=== PATIENT | male | born 2005 | race Caucasian/White ===

== ENCOUNTER 2023-10-09 13:25 | Emergency (ER) | payer OTHER, SELFPAY ==
[2023-10-09 13:30] VITALS: BP 155/94; PULSE 100; RESP 18; TEMP 36.8; O2SAT 100; BMI 16.7
--- NOTE | 2023-10-09 13:36 | ED.UPPEXIN1 ---
HPI - Extremity Injury (Upper) General Chief Complaint: Wound/Laceration Stated Complaint: UPPER EXTREMITY INJURY TO RIGHT THUMB Time Seen by Provider: 10/09/23 13:35 Source: patient Mode of arrival: walk-in Limitations: no limitations History of Present Illness HPI narrative: patient is a 18-year-old male who presents to the emergency department for laceration to the left hand that occurred at home just prior to arrival. He states he was using a very sharp hook blade to cut a water bottle when he sustained a laceration to the palm of the left hand at the 1st metacarpal. There is mild venous oozing, no arterial bleeding at this time. Tetanus is up-to-date. He had no other associated injuries. He is right-hand dominant. This was not a work-related injury. Related Data Allergies Allergy/AdvReac Type Severity Reaction Status Date / Time Iodinated Contrast Media Allergy Unknown Verified 10/09/23 13:33 morphine Allergy Unknown Verified 10/09/23 13:33 Review of Systems ROS Constitutional Denies: fever or chills Ears, nose, mouth, and throat Denies: throat pain Respiratory Denies: shortness of breath Gastrointestinal Denies: nausea or vomiting Musculoskeletal Reports: extremity pain; Denies: neck pain Integumentary/Breast Denies: rash Hematologic/Lymphatic Denies: easy bruising Exam Narrative Exam Narrative: Gen.: Awake, alert, in no distress Head: Normocephalic, atraumatic ENT: Moist mucous membranes Respiratory: No respiratory distress Extremities: left hand with a 3 cm laceration extending proximally to distally over the palm of the left hand, 1st metacarpal. No laceration over the MCP joint of the left thumb. Normal flexion and extension at the MCP and IP joint of the left thumb, no evidence of tendon deficit. Minimal bleeding at this time, subcutaneous tissue visualization with no deep laceration or bony/tendon visualization Psych: Normal mood and affect Neuro: No focal neuro deficit Skin: Warm, dry Constitutional Vital Signs, click to edit/add: Last Vital Signs Temp 98.2 F 10/09/23 13:30 Pulse 100 H 10/09/23 13:30 Resp 18 10/09/23 13:30 BP 155/94 H 10/09/23 13:30 Pulse Ox 100 10/09/23 13:30 O2 Del Method Room Air 10/09/23 13:30 Course Vital Signs Vital signs: Vital Signs Temperature 98.2 F 10/09/23 13:30 Pulse Rate 100 H 10/09/23 13:30 Respiratory Rate 18 10/09/23 13:30 Blood Pressure 155/94 H 10/09/23 13:30 Pulse Oximetry 100 10/09/23 13:30 Oxygen Delivery Method Room Air 10/09/23 13:30 Temperature 98.2 F 10/09/23 13:30 Pulse Rate 100 H 10/09/23 13:30 Respiratory Rate 18 10/09/23 13:30 Blood Pressure 155/94 H 10/09/23 13:30 Pulse Oximetry 100 10/09/23 13:30 Oxygen Delivery Method Room Air 10/09/23 13:30 MDM - Extremity Injury (Upper) MDM Narrative Medical decision making narrative: Laceration repair: Done under sterile conditions. The use of Shur-Clens prep the area. Local injection with lidocaine 1% was used, approximately 5 cc. The wound was irrigated copiously with normal saline. The wound was explored there was no evidence of foreign material. The laceration was approximated with 3-0 nylon. 5 simple interrupted sutures were placed. Patient tolerated the procedure well. The patient was neurovascularly intact post. the patient had bacitracin applied to the laceration and a dry sterile dressing was place. The patient will need to follow-up in the next 7-10 days for removal Laceration was repaired without difficulty, please see procedure note for details. Sutures removed in 7-10 days with PCP, return to the Emergency Room if symptoms change or worsen. Medical Records Attestation: I reviewed the patient's medical records. Discharge Plan Discharge Chief Complaint: Wound/Laceration Clinical Impression: Laceration of left hand Patient Disposition: Home, Self-Care Time of Disposition Decision: 13:39 Condition: Good Instructions: Laceration (ED) Additional Instructions: Sutures removed in 7-10 days with your doctor or at urgent care Stand Alone Forms: Portal Instructions Referrals: KEISHA YI [Primary Care Provider] - 1 week
[2023-10-09] MEDS: BACITRACIN 0.9 GM PACKET 1 PACKET TOPICAL (13:42)
[2023-10-09] MEDS: LIDOCAINE HCL 1% 100 MG/10 ML MDV INJ (13:43)
== END 2023-10-09 14:07 | disposition home or self-care (01) ==
PROVIDERS: Emergency Provider Emergency Medicine; PCP Pediatrics
DX: S61.412A Laceration without foreign body of left hand, initial encounter (principal); W26.8XXA Contact with other sharp object(s), not elsewhere classified, initial encounter
CPT/HCPCS: 12002; 99284

== ENCOUNTER 2024-02-11 08:55 | Emergency (ER) | payer OTHER, SELFPAY ==
[2024-02-11 09:00] VITALS: BP 123/95; PULSE 100; RESP 18; TEMP 36.9; O2SAT 100; BMI 15.6
--- NOTE | 2024-02-11 09:08 | ED.URI1 ---
HPI - URI/Sore Throat General Chief Complaint: Upper Respiratory Infection Stated Complaint: COUGH Time Seen by Provider: 02/11/24 09:00 Source: patient Limitations: no limitations History of Present Illness HPI Narrative: 18-year-old male presents for cough that has had for a week and he has been coughing up yellow phlegm. No known fever or hemoptysis. No vomiting or diarrhea. Related Data Previous Rx's Medication Instructions Recorded azithromycin 250 mg tablet See Rx Instructions PO .COMPLEX #6 02/11/24 (Zithromax Z-Silviano) tabs benzonatate 100 mg capsule 100 mg PO TID PRN cough #20 caps 02/11/24 Allergies Allergy/AdvReac Type Severity Reaction Status Date / Time Iodinated Contrast Media Allergy Unknown Verified 02/11/24 09:00 morphine Allergy Unknown Verified 02/11/24 09:00 Review of Systems ROS Narrative A ten point review of systems is negative except as noted above. PFSH PFSH Social History Smoking status: Current every day smoker Exam Narrative Exam Narrative: Nurses note and vital signs reviewed and patient is not hypoxic. General: The patient appears in no apparent distress and coughs frequently. Skin: Warm, dry, no pallor noted. There is no rash noted. Head: Normocephalic, atraumatic Eye: Normal conjunctiva, no drainage Ears, Nose, Mouth, and Throat: oral mucosa is moist. Nares patent. Cardiovascular: Regular Rate and Rhythm Respiratory: Patient is in no distress, no accessory muscle use, lungs are clear to auscultation, no wheezing, rales or rhonchi Back: non-tender GI: Soft and nontender Musculoskeletal: The patient has no evidence of calf tenderness, no pitting edema, symmetrical pulses noted bilaterally Neurological: A&O, normal speech Psychiatric: Cooperative Constitutional Vital Signs, click to edit/add: Last Vital Signs Temp 98.5 F 02/11/24 09:00 Pulse 100 H 02/11/24 09:00 Resp 18 02/11/24 09:00 BP 123/95 H 02/11/24 09:00 Pulse Ox 100 02/11/24 09:00 O2 Del Method Room Air 02/11/24 09:00 Course Vital Signs Vital signs: Vital Signs Temperature 98.5 F 02/11/24 09:00 Pulse Rate 100 H 02/11/24 09:00 Respiratory Rate 18 02/11/24 09:00 Blood Pressure 123/95 H 02/11/24 09:00 Pulse Oximetry 100 02/11/24 09:00 Oxygen Delivery Method Room Air 02/11/24 09:00 Temperature 98.5 F 02/11/24 09:00 Pulse Rate 100 H 02/11/24 09:00 Respiratory Rate 18 02/11/24 09:00 Blood Pressure 123/95 H 02/11/24 09:00 Pulse Oximetry 100 02/11/24 09:00 Oxygen Delivery Method Room Air 02/11/24 09:00 MDM - URI/Sore Throat MDM Narrative Medical decision making narrative: COVID and flu swabs are negative and the chest x-ray is negative as well. Treatment diagnosis and follow-up were discussed with the patient Differential Diagnosis Differential diagnosis: Likely upper respiratory infection, viral infection, influenza and other (Pneumonia, COVID) Lab Data Attestation: I reviewed the patient's lab results. Labs: Lab Results 02/11/24 Range/Units 09:05 Influenza Type A Ag Negative Influenza Type B Ag Negative SARS-CoV-2 Ag (CV2AG) Negative (NEGATIVE) Imaging Data Chest x-ray: Radiologist's impression: ITS Impressions Chest X-Ray 02/11/24 09:20 IMPRESSION: No acute cardiopulmonary process Electronically authenticated by: JOCY GUDINO Date: 02/11/2024 09:29 Discharge Plan Discharge Stand Alone Forms: Portal Instructions Chief Complaint: Upper Respiratory Infection Clinical Impression: Upper respiratory infection Patient Disposition: Home, Self-Care Time of Disposition Decision: 10:12 Condition: Good Mode of Transportation: Private Vehicle Prescriptions / Home Meds: New azithromycin [Zithromax Z-Silviano] 250 mg tablet See Rx Instructions .ROUTE .COMPLEX Qty: 6 0RF Rx Instructions: For 250 mg dose pack: take 500 mg today (day 1), then 250 mg for 4 days (days 2-5) benzonatate 100 mg capsule 100 mg PO TID PRN (Reason: cough) Qty: 20 0RF Instructions: Upper Respiratory Infection (ED) Referrals: KEISHA YI [Primary Care Provider] - 1 week
--- OUTSIDE RECORDS SUMMARY | 2024-02-11 09:13 | XMS_ITS | CCD ---
Author Name Unknown Address [address] [place] [address] Organization [facility] Care Team Providers Care Stockroom Clerk Name Role Phone PROVIDER, UNKNOWN Admitting Unavailable PROVIDER, UNKNOWN Attending Unavailable RICARDO, BONI Referring Unavailable PROVIDER, UNKNOWN Admitting Unavailable PROVIDER, UNKNOWN Attending Unavailable PATIENT, SELF Referring Unavailable PROVIDER, UNKNOWN Admitting Unavailable PROVIDER, UNKNOWN Attending Unavailable PATIENT, SELF Referring Unavailable WNEK, Vipul Villatoro Primary Care Physician [phone] PAY, DR VILLA Attending Unavailable PAY, DR VILLA Consulting Unavailable WNEK, DR VIPUL Villatoro Primary Care Unavailable PAY, DR VILLA Admitting Unavailable MARKER, DR BEE Consulting Unavailable MARKER, DR BEE Admitting Unavailable WNEK, DR VIPUL Villatoro Primary Care Unavailable MARKER, DR BEE Attending Unavailable SAID, BINOR Consulting Unavailable Marti, Giliudmila Consulting Unavailable NONE, XXXX Primary Care Physician Unavailab le SALAM, Sunday Attending Unavailable SALAM, Sunday Referring Unavailable SALAM, Brand Admitting Unavailable SALAM, Brand Referring Unavailable SALAM, Brand Admitting Unavailable SALAM, Sunday Attending Unavailable SALAM, Brand Referring Unavailable SALAM, Brand Admitting Unavailable SALAM, Brand Attending Unavailable Sully, Estella A Admitting Unavailable Sully, Estella A Attending Unavailable Daniela Stevens A Attending Unavailable SALAM, Sunday Attending Unavailable Sully, Estella A Attending Unavailable Nicole Mckoy Attending Unavailable Mellissa CALLE Attending Unavailable Allergies Allergy Classification Reported Allergen(s) Allergy Type Date of Onset Reaction(s) Facility (8 sources) Cephalexin; Translations: [CEPHALEXIN] Drug Allergy 01-18-20 Eruption of skin (disorder) [facility] (8 sources) Morphine; Translations: [MORPHINE] Drug Allergy 01-18-20 Eruption of skin (disorder) [facility] (1 source) IVP CONTRAST DYE; Translations: [IVP CONTRAST DYE] Propensity to adverse reactions (disorder) 01-19-20 [facility] (11 sources) Promethazine; Translations: [promethazine] Drug Allergy HIVES, Unknown [facility] (1 source) Iodine (And Iodine Containting Drugs) Drug allergy (disorder) [facility] Repository (7 sources) iodinated radiocontrast dyes; Translations: [iodinated radiocontrast agents] Drug allergy 01-18-20 Eruption of skin (disorder) [facility] (1 source) No Known Medication Allergies; Translations: [No Known Medication Allergies] Propensity to adverse reactions (disorder) [facility] Repository Medications Current Medications Medication Drug Class(es) Dates Sig (Normalized) Sig (Original) cephalexin 500 mg oral capsule (1 source) Cephalosporin Antibacterial Start: 04-22-2022 End: 04-29-2022 take 1 capsule by mouth every twelve hours Keflex 500 mg Cap 500 mg = 1 cap(s), Oral, q12hr, X 7 day(s), # 14 cap(s), Refills(s) 0, Pharmacy: [facility]/pharmacy #[id number], 185.2, cm, 01/15/22 13:32:00 EST, Height/Length Dosing, 52.7, kg, 01/15/22 13:32:00 EST, Weight Dosing Start Date: 04/22/22 Stop Date: 04/29/22 Status: Ordered cloNIDine hydrochloride 0.1 mg oral tablet (1 source) Central alpha-2 Adrenergic Agonist Start: 03-13-2022 take 1 tablet by mouth at bedtime cloNIDine 0.1 mg tab 0.1 mg = 1 tab(s), Oral, Bedtime, # 30 tab(s), Refills(s) 0, Pharmacy: [facility]/pharmacy #[id number], 185.2, cm, 01/15/22 13:32:00 EST, Height/Length Dosing, 52.7, kg, 01/15/22 13:32:00 EST, Weight Dosing Start Date: 03/13/22 Status: Ordered Ibuprofen (2 sources) Nonsteroidal Anti-inflammatory Drug Start: 05-21-2023 ibuprofen Refills(s) 0 Start Date: 05/21/23 Status: Ordered Mupirocin (6 sources) RNA Synthetase Inhibitor Antibacterial Start: 05-27-2022 mupirocin topical 2% ointment 1 kenny, Topical, TID, 30 gram, Refill(s) 0, [facility]/pharmacy #[id number], 177.2, cm, 05/27/22 9:52:00 EDT, Height/Length Dosing, 51.8, kg, 05/27/22 9:52:00 EDT, Weight Dosing Start Date: 05/27/22 Status: Ordered omeprazole 20 mg delayed release oral capsule (3 sources) Proton Pump Inhibitor Start: 04-05-2023 End: 04-19-2023 take 1 capsule by mouth once daily omeprazole 20 mg Cap-DR 20 mg = 1 cap(s), Oral, Daily, X 14 day(s), # 14 cap(s), Refills(s) 0, Pharmacy: [facility]/pharmacy #[id number], 180, cm, 04/05/23 22:17:00 EDT, Height/Length Dosing, 50.7, kg, 04/05/23 22:17:00 EDT, Weight Dosing Start Date: 04/05/23 Stop Date: 04/19/23 Status: Ordered predniSONE 50 mg oral tablet (3 sources) Start: 04-17-2023 take 1 tablet by mouth every twenty-four hours predniSONE 50 mg Tab See Instructions, 1 tab PO [address] 1 tab PO [address] 1 tab PO [address] along with Benadry 50mg tab [address], # 3 tab(s), Refills(s) 0, called to pharmacy (Rx) Start Date: 04/17/23 Status: Ordered Problems Active Problems Problem Classification Problem Date Documented Da te Episodic/Chronic Anxiety disorders (3 sources) Anxiety disorder; Translations: [Anxiety disorder, unspecified] Onset: 05-21-2023 Chronic Anxiety disorders (7 sources) Outbursts of anger 02-16-2020 Episodic E Codes: Natural/environment (1 source) Exposure to other specified factors, initial encounter; Translations: [EXPOSURE OTHER SPEC FACTORS INITIAL] Onset: 11-07-2022 Episodic Other bone disease and musculoskeletal deformities (7 sources) Costal chondritis 03-30-2020 Episodic Other circulatory disease (3 sources) Other specified symptoms and signs involving the circulatory and respiratory systems; Translations: [OTH SPEC SX SIGNS INVLV CIRC RS] Onset: 11-05-2022 Episodic Other gastrointestinal disorders (9 sources) Dysphagia; Translations: [Dysphagia, unspecified] Onset: 04-10-2023 Episodic Other gastrointestinal disorders (1 source) Constipation, unspecified; Translations: [Constipation, unspecified] Onset: 05-21-2023 Episodic Other gastrointestinal disorders (2 sources) Constipation 05-21-2023 Episodic Other injuries and conditions due to external causes (1 source) Food in esophagus causing other injury, initial encounter; Translations: [FOOD ESOPH CAUS OTH INJURY INIT ENC] Onset: 11-07-2022 Episodic Other non-traumatic joint disorders (6 sources) Shoulder pain 05-27-2022 Episodic Other nutritional; endocrine; and metabolic disorders (2 sources) Abnormal weight loss; Translations: [Abnormal weight loss] Onset: 04-10-2023 Episodic Other nutritional; endocrine; and metabolic disorders (6 sources) Weight loss 04-10-2023 Episodic Other nutritional; endocrine; and metabolic disorders (1 source) Body mass index less than 20; Translations: [Body mass index (BMI) 19.9 or less, adult] Onset: 05-21-2023 Episodic Other upper respiratory infections (20 sources) Acute pharyngitis; Translations: [Acute upper respiratory infection] 09-04-2020 Episodic Residual codes; unclassified (7 sources) Insomnia 11-27-2021 Episodic Residual codes; unclassified (1 source) Tobacco user; Translations: [Tobacco use] Onset: 05-21-2023 Episodic Substance-related disorders (8 sources) Smoker; Translations: [Nicotine dependence, cigarettes, uncomplicated] Onset: 11-07-2022 04-22-2022 Chronic Comment on above: Added secondary to d ocumentation in Social History. Unclassified (7 sources) Decreased body mass index 05-03-2019 Unclassified (7 sources) Exposure to 2019 novel coronavirus 09-12-2021 Unclassified (7 sources) Patient encounter status 05-18-2020 Unclassified (6 sources) Puncture wound of finger of left hand 05-27-2022 Past or Other Problems Problem Classification Problem Date Documented Date Episodic/Chronic Genitourinary symptoms and ill-defined conditions (4 sources) Dysuria; Translations: [DYSURIA] Onset: 04-28-2022 Episodic Immunizations and screening for infectious disease (1 source) Contact with and (suspected) exposure to infections with a predominantly sexual mode of transmission; Translations: [CONTCT W EXPOS INFECT SEXUAL TRNSMS] Onset: 04-30-2022 Episodic Urinary tract infections (2 sources) Urinary tract infectious disease; Translations: [Urinary tract infection, site not specified] Onset: 04-22-2022 Episodic Results Test Name Value Interpretation Reference Range Facility Consent for Procedure/Surger yon 05-22-2023 Consent for Procedure/Surgery [id number]# 1.00CD:127 Normal [facility] Gastroenterology Office/Clin ic Noteon 05-22-2023 Gastroenterology Office/Clinic Note Chief Complaint dysphagia, stomach cramping after drinking an ensure on an empty stomach HPI Staff Patient is a 18 year old male who presents today to f/u from EGD, CT and labs to rule out Celiac disease/hemochromatos is (strong family hx.) C/o dysphagia and weight loss. Needs to schedule outpatient colonoscopy today. History of Present Illness Paco Edmonds is a 18-year-old white male who was initially seen by my nurse in 03/2023 after an ER visit. He had weight loss and dysphagia. He underwent an abdomen and pelvic CT scan in 05/2023 which was completely normal. For his dysphagia, I proceeded with an EGD which was done in 03/2023 and showed a mild proximal esophageal wipe which I dilated using 52 Mauritanian dilator and he had normal gastric and duodenal mucosa. His esophageal mucosa were negative for eosinophilic esophagitis, his stomach mucosa were negative for H. pylori and his duodenal mucosa were not consistent with celiac disease. He had a normal CBC and CMP. His sedimentation rate was normal. His TSH was normal. His iron panel was normal and celiac panel was normal. He states that his dysphagia resolved for a few days following the dilation but then returned. He reports he is chocking on food and feeling like he is swallowing a rock that takes longer to travel with dense food. He has been eating mashed food and drinking 2 Ensure daily. He has been maintaining a steady weight at 82 to 102 pounds. He denies losing any more weight. The patient denies heartburn, acid reflux, diarrhea, or hematochezia. He reports mild constipation. He has a bowel movement every 1 to 2 days. He denies any neurologic problems. He has a history of anxiety and stress. He does not feel that his anxiety is severe enough to require treatment. He sleeps 5 to 8 hours at night. He reports that his dysphagia improved when he took prednisone before his contrast. He has been taking liquid ibuprofen. He has a family history of esophageal spasms in his cousin. Review of Systems PHQ Score Initial Depression Screen Score: 0 Constitutional: No fever, no chills, no sweats, no weakness Skin: No Jaundice, no rash, no lesions, no petechiae ENMT: no ear pain, no sore throat, no congestion, no hoarseness Respiratory: no shortness of breath, no cough, no orthopnea, no wheezing Cardiovascular: no chest pain, no palpitations, no edema Gastrointestinal: no nausea, no vomiting, no diarrhea, no GI bleeding, no abdominal pain, no bloating, no heartburn. Positive for dysphagia, weight loss, constipation. Genitourinary: No dysuria, no hematuria, no discharge, no pain Musculoskeletal: no back pain, no trauma Neurologic: no numbness, no sleeping problems. Positive anxiety. Additional ROS info: Except as noted in the above Review of Systems and in the History of Present Illness all other systems have been reviewed and are negative or noncontributory. Physical Exam Vitals & Measurements HR: 77(Peripheral) RR: 16 BP: 134/85 SpO2: 98% HT: 71 in HT: 180 cm WT: 49.8 kg WT: 109.56 lb BMI: 15.37 Constitutional: Appearance: well developed. Skin: Inspection: no rashes, ulcers, icterus, or telangiectasias. Eyes: Conjunctivae/lids: normal conjunctivae and lids. ENMT: Hearing: within normal limits. Lips/Teeth/Gums: normal oral mucosa. Neck: Neck: normal motion, central trachea. Respiratory: Percussion: thorax normoresonant. Auscultation: normal breath sounds; no rubs, wheezes, rale, or rhonchi. Cardiovascular: Auscultation: normal rhythm, S1 and S2; no rubs, murmurs, or gallop. Peripheral: no edema. Gastrointestinal/Abdo men: Abdomen: normal consistency and bowel sounds; no tenderness or masses. Liver/Spleen: normal size and consistency, not palpable. Rectal: deferred. Musculoskeletal: Gait/Station: normal gait. Assessment/Plan 1. Dysphagia (R13.10: Dysphagia, unspecified) The patient has significant dysphagia. He had a recent EGD. A mild proximal esophageal web was noted and dilated using 52 Mauritanian dilator. The patient reported only temporary improvement for a few days. He continued to report dysphagia. He describes it in a term that is more consistent with esophageal etiology. At this point, I do recommend to proceed with esophageal motility, esophagram and after this done I will repeat the scope with dilation with a large dilator around 58 or 60 Mauritanian dilator. His recent esophageal biopsies were negative for eosinophilic esophagitis, although the patient reported a transient improvement with his dysphagia after he took a few pills of prednisone as a preparation for his potential allergic reaction with the CT scan dye. I would recommend to repeat the esophageal biopsy during the upcoming EGD. 2. Weight loss (R63.4: Abnormal weight loss) The patient had significant weight loss in the past, but his weight remained stable since the last visit. He had a normal CBC, CMP, TSH, sedimentation rate, celiac panel, abdominal and pelvic CT scan.He reports very mild constipation. Given his above symptoms, (more content not included)... Normal [facility] Comment on above: Result Comment: Elec tronically Signed By: Milton Maya\.br\Date and Time Signed: 05/21/23 11:32 EDT\.br\Electronically Co-Signed By: Sunday MEDRANO MD\.br\Date and Time Co-Signed: 05/22/23 08:24 EDT Ambulatory Visit Summaryon 0 05-21-2023 Ambulatory Visit Summary PACO EDMONDS :2005 Visit Date:05/21/2023 Ambulatory Visit Instructions Your Diagnosis Dysphagia Weight loss Constipation Anxiety BMI less than 19,adult Vapes nicotine containing substance Your Care Team Attending Physician - Sunday MEDRANO MD Primary Care Physician - NONE, XXXX This Is Your Medications List Contact prescribing physician if questions or concerns ibuprofen mupirocin topical (mupirocin topical 2% ointment) predniSONE (predniSONE 50 mg Tab) Procedures Performed Esophagogastroduodeno scopy (04/11/2023), Dental surgery service (01/19/2020), Laparoscopic appendectomy (11/27/2018). Discharge Vitals Heart Rate (Peripheral) 77 Respiratory Rate 16 Blood Pressure 134/85 Height 71 in Height 180 cm Weight 109.56 lb Weight 49.8 kg BMI 15.37 What to do next Scheduled Follow-Up Appointments Friday 9:00 AM EDT Where: [facility] Friday 10:00 AM EDT Where: [facility] You Need to Complete the Following XR Esophagus, 05/30/23, Routine, Order for future visit, Transport Mode: Bed, Reason: Dysphagia, Reason: R13.10, No, Dysphagia, pp_set_radiology_subs pecialty, Not Required, [facility] Medications What How Much When Why Instructions Unchanged ibuprofen Contact prescribing physician if questions or concerns Unchanged mupirocin topical (mupirocin topical 2% ointment) 1 Application Topical 3 times a day Puncture wound of finger of left hand Contact prescribing physician if questions or concerns Unchanged predniSONE (predniSONE 50 mg Tab) See instructions 1 tab PO [address] 1 tab PO [address] 1 tab PO [address] along with Benadry 50mg tab [address] Contact prescribing physician if questions or concerns Allergies Phenergan (HIVES) cephalexin (Eruption) iodinated radiocontrast dyes (Eruption) morphine (Eruption) promethazine (Unknown, HIVES) Problems Ongoing - Any problem that you are currently receiving treatment for. Acute costochondritis Acute pharyngitis Acute pharyngitis Anxiety Constipation Dysphagia Exposure to COVID-19 virus Insomnia Outbursts of anger Puncture wound of finger of left hand Right shoulder pain Smoker Underweight in childhood with BMI < 5th percentile Upper respiratory infection Weight loss Well child check Historical - Any problem that you are no longer receiving treatment for. Acute upper respiratory infection Normal [facility] CT Abdomen/Pelvis w/ Contras ton 05-12-2023 CT Abdomen/Pelvis w/ Contrast Exam Date/Time: 05/10/2023 10:11 EDT Reason for Exam: R13.10;Other (please specify) Report IMPRESSION: NO ACUTE OR SIGNIFICANT INTRA-ABDOMINAL PROCESS IDENTIFIED. EXAM: CT Abdomen/Pelvis w/ Contrast DATE: 05/10/2023 CLINICAL HISTORY: R13.10. COMPARISON: 11/27/2018. TECHNIQUE: Spiral imaging was obtained of the abdomen and pelvis after the uneventful infusion of approximately 100 mL of Isovue 300 contrast. Oral contrast was used for bowel opacification. All CT scans at this facility use dose modulation, iterative reconstruction, and/or weight based dosing when appropriate to reduce radiation dose to as low as reasonably achievable. FINDINGS: Since the prior study, the appendix has been removed. There is no abnormal bowel dilatation, inflammatory changes, ascites, lymphadenopathy, hernias, or other findings of concern identified. The liver, gallbladder, spleen, pancreas, adrenal glands, kidneys, great vessels, unopacified bowel loops, urinary bladder, the visualized lung bases and musculoskeletal structures are unremarkable, with an approximately 1 cm nonenhancing cyst again noted within the posteromedial lower right renal pole. Ordering Provider: Sunday MEDRANO FINAL REPORT Dictated: 05/12/2023 5:19 am Darnell Carlson MD Signed (Electronic Signature): 05/12/2023 5:19 am Signed by: Darnell Carlson MD Transcribed by: DESIREE Technologist: FLAKITO Technical Comments GFR (mL/min/1/73m2) na Contrast: Isovue 300 Contrast amount in ml's: 100 [facility] Consent for Treatmenton 05-01 Consent for Treatment [id number]#1 .00CD:127 [facility] Consent for Treatmenton 04-02 Consent for Treatment [id number] .00CD:127 [facility] IntraOperative Documentson 0 04-17-2023 IntraOperative Documents [id number]#1 .00CD:127 [facility] Discharge Instructionson Discharge Instructions [id number]#1. 00CD:127 [facility] Postoperative Documentson Postoperative Documents [id number]# 1.00CD:127 [facility] Pre-Certification Formon Pre-Certification Form [id number]# 1.00CD:127 Normal [facility] Consenton 04-14-2023 Consent [id number]# 1.00CD:127 Normal [facility] Main OR Intraoperative Recor don 04-14-2023 Main OR Intraoperative Record IntraOp Document Type FT Summary Primary Physician: Sunday MEDRANO MD Finalized Date/Time: 04/14/23 07:50:35 Pt. Name: DARIOPACO/Sex: 2005 Male Med Rec #: [id number] Physician: Sunday MEDRANO MD Financial #: [id number] Pt. Type: O Room/Bed: / Admit/Disch: 04/11/23 10:09:04 - 04/11/23 23:59:59 Institution: Case Times FT Entry 1 Patient Times In Room 04/11/23 12:05:00 Out Room 04/11/23 12:16:00 Procedure Times Start 04/11/23 12:09:00 Stop 04/11/23 12:14:00 Anesthesia Times Start 04/11/23 12:05:00 Stop 04/11/23 12:16:00 Last Modified By: Terese Clark RN 04/11/23 12:19:46 General Comments: 04/14/23 Chart opened to review and send charges [facility] Case Attendance FT Entry 1 Entry 2 Entry 3 Case Attendee Tone Gates DO, Steven Clark RN, Samantha Salinas Role Performed Anesthesiologist of Nurse [employer] - Primary Scrub - Primary Record Time In 04/11/23 12:05:00 04/11/23 12:05:00 04/11/23 12:05:00 Time Out 04/11/23 12:16:00 04/11/23 12:16:00 04/11/23 12:16:00 Procedure EGD DILATATION(.) EGD DILATATION(.) EGD DILATATION(.) Comments Last Modified By: Eduardo CONTI, Terese Clark RN, Terese Terese Gordon RN 04/11/23 12:19:47 04/11/23 12:19:47 04/11/23 12:19:47 Entry 4 Entry 5 Case Attendee Moiz Gilmore MD, Maher Role Performed Staff - Other Surgeon - Primary Time In 04/11/23 12:05:00 04/11/23 12:05:00 Time Out 04/11/23 12:16:00 04/11/23 12:16:00 Procedure EGD DILATATION(.) EGD DILATATION(.) Comments Last Modified By: Terese Clark RN, RN, Kristin N 04/11/23 12:19:47 04/11/23 12:19:47 Perioperative Protocols FT Pre-Care Text: Implements protective measures prior to operative or invasive procedure, confirms identity before the operative or invasive procedure, verifies operative procedure, surgical site, and laterality Entry 1 Procedure(s) EGD DILATATION(.) Patient Identity Birthday, ID Band Verified (select at Check, Patient least 2): Participation Consents / H and P Anesthesia Consent, Operative Site N/A Verified HandP, Surgery/Procedure Marking Verified Consent Surgical Site No Laterality Verified n/a Verified Procedure Verified Yes Correct Patient Yes Position Verified Availability Equipment, Medication Prep Dry n/a Verified (If Applicable) PreOp Antibiotic No Time Out Steven Wayne Jr, DO, Given Participants Terese Clark RN, Samantha Vickers Sparks, Micala E, SALAM MD, Maher Time Out Complete 04/11/23 12:06:00 Outcomes Met? Yes Last Modified By: Terese Clark RN 04/11/23 12:08:08 Post-Care Text: The patient is free from signs and symptoms of injury caused by extraneous objects Allergy Information FT Pre-Care Text: Verifies allergies Entry 1 Allergies Reviewed? Yes Allergies Reviewed Self/Patient With Outcomes Met? Yes Last Modified By: Terese Clark RN 04/11/23 10:30:04 Post-Care Text: The patient received appropriate medication(s) safely administered during the perioperative period Surgical Procedures FT Entry 1 Procedure Description Procedure EGD DILATATION Modifiers . Surgeon Description EGD with duodenal biopsy, gastric biopsy, distal esophagus biopsy, proximal esophagus biopsy and esophageal dialation kenrick a 52 Fr. Tete. Primary Procedure Yes Primary Surgeon Sunday MEDRANO MD 04/11/23 12:09:00 Stop 04/11/23 12:14:00 Anesthesia Type General Surgical Service Gastroenterology Wound Class 2 - Clean-Contaminated Last Modified By: Terese Clark RN 04/11/23 12:14:52 General Case Data FT Pre-Care Text: Classifies surgical wound, implements aseptic technique, initiates traffic control Entry 1 Case Information OR ENDO 1 FT Case Level Level 2 Wound Class 2 - Clean-Contaminated Specialty Gastroenterology ASA Class 2 Preop Diagnosis Dysphagia, weight loss Postop Same As Preop No Postop Diagnosis Proximal esophageal ring Outcomes Met? Yes Last Modified By: Terese Clark RN 04/11/23 12:14:49 Post-Care Text: The patient is free from signs and symptoms of infection Skin Assessment (Pre Procedure) FT Pre-Care Text: Implements protective measures to prevent skin/ tissue injury due to thermal or mechanical sources Evaluates for signs and symptoms of physical injury to skin and tissue Entry 1 Skin Integrity Intact, [place], Warm, and Skin Abnormality No Dry Outcomes Met? Yes Last Modified By: Terese Clark RN 04/11/23 10:30:37 Post-Care Text: The patient is free from signs and symptoms of injury caused by extraneous objects Patient Positioning FT Pre-Care Text: Identifies physical alterations that require additional precautions for procedure-specific positioning, verifies presence of prosthetics or corrective devices, positions the patient, evaluates the patient for signs and symptoms of injury as a result of positioning Entry 1 Procedure EGD DILATA (more content not included)... Normal [facility] Postoperative Documentson Postoperative Documents [id number]# 1.00CD:127 Normal [facility] IgA, Quant.on 04-12-2023 IgA [Mass/Vol] 297 mg/dL Invalid Interpretation Code 90-386 [facility] Comment on above: Result Comment: Perf ormed at: [facility] [address] [id number] PhD Fransico Shin Performed By: #### [id number] 1561103, 85183795, 73336312, 06016057, 8289064, 8604614, 81222497, 2185104, 2207592, 54577473 ####[facility] [address] [id number] Progress Note-Physicianon Progress Note-Physician Patient: PACO EDMONDS Age: 18 years Sex: Male : 2005 Associated Diagnoses: None Author: Steven Wayne Jr, DO Preoperative Information Anesthesia Preop Info: Time patient last ate or drank 04/11/2023 00:00:00. Anesthesia history: Patient history: None. Family history+: None. Informed consent: Signed by patient. Re-evaluation prior to induction: Initial evaluation reviewed: No significant change. Review of Systems Eye: Negative except as documented in history of present illness. Ear/Nose/Mouth/Throat : Negative except as documented in history of present illness. Respiratory: Negative except as documented in history of present illness. Cardiovascular: Negative except as documented in history of present illness. Musculoskeletal: Negative except as documented in history of present illness. Neurologic: Negative except as documented in history of present illness. Health Status Allergies: Allergic Reactions (Selected) Severity Not Documented Cephalexin- Eruption. Iodinated radiocontrast dyes- Eruption. Morphine- Eruption. Phenergan- Hives. Problem list: All Problems Acute pharyngitis / SNOMED CT 805375725 / Confirmed Acute pharyngitis / SNOMED CT 315936745 / Confirmed Acute costochondritis / SNOMED CT 1995144214 / Confirmed Underweight in childhood with BMI < 5th percentile / SNOMED CT 93383341 / Confirmed Dysphagia / SNOMED CT 55434767 / Confirmed Exposure to COVID-19 virus / SNOMED CT 1017200386 / Confirmed Insomnia / SNOMED CT 460323066 / Confirmed Outbursts of anger / SNOMED CT 693984139 / Confirmed Well child check / SNOMED CT 356200608 / Confirmed Puncture wound of finger of left hand / SNOMED CT 4703287254 / Confirmed Right shoulder pain / SNOMED CT 09139900 / Confirmed Smoker / SNOMED CT 854061724 / Confirmed Added secondary to documentation in Social History. Upper respiratory infection / SNOMED CT 85848722 / Confirmed Weight loss / SNOMED CT 605238118 / Confirmed Resolved: Acute upper respiratory infection / SNOMED CT 57882192 Histories Procedure history: Dental surgery service ([id number]) on 01/19/2020 at 14 Years. Laparoscopic appendectomy ([id number]) on 11/27/2018 at 13 Years. Social History Social & Psychosocial Habits Alcohol 01/18/2019 Risk Assessment: Denies Alcohol Use 05/03/2019 Concerns about alcohol use in household: No Comment: denies - 04/22/2022 11:Mellissa Lincoln RN Substance Abuse 01/18/2019 Risk Assessment: Denies Substance Abuse 05/03/2019 Concerns about substance abuse in household: No Comment: denies - 04/22/2022 11:Mellissa Lincoln RN Tobacco 01/15/2022 Risk Assessment: Low Risk Comment: vapes - 04/22/2022 11:Mellissa Lincoln RN 04/10/2023 Tobacco Use: Never (less than 100 in l Smokeless tobacco use: Current vaping or e-cigar Type: Vaping . Physical Examination Airway: Mallampati classification: II (soft palate, fauces, uvula visible). Respiratory: adequate air exchange. Cardiovascular: Regular rhythm. Plan [place] [employer] Anesthesiologists (ASA) physical status classification: Class II. Anesthetic Preoperative Plan: Anesthesia General. [facility] Comment on above: Result Comment: Elec tronically Signed By: Steven Wayne Jr, DO\.br\Date and Time Signed: 04/12/23 09:05 EDT Progress Note-Physician Patient: PACO EDMONDS Age: 18 years Sex: Male : 2005 Associated Diagnoses: None Author: Steven Wayne Jr, DO Postoperative Information Postoperative disposition: Postoperative disposition: To PACU. Optimetrix number: Optimetrix number [id number]. Anesthetic utilized: General. Health Status Allergies: Allergic Reactions (Selected) Severity Not Documented Cephalexin- Eruption. Iodinated radiocontrast dyes- Eruption. Morphine- Eruption. Phenergan- Hives. Physical Examination Vital Signs 04/11/2023 12:30 EDT Heart Rate Monitored 93 bpm Respiratory Rate Monitored 19 br/min Systolic Blood Pressure 109 mmHg Diastolic Blood Pressure 64 mmHg SpO2 100 % 04/11/2023 12:25 EDT Heart Rate Monitored 69 bpm Respiratory Rate Monitored 13 br/min Systolic Blood Pressure 107 mmHg Diastolic Blood Pressure 61 mmHg SpO2 96 % 04/11/2023 12:20 EDT Temperature Temporal Artery 36.2 DegC LOW Heart Rate Monitored 83 bpm Respiratory Rate Monitored 20 br/min Systolic Blood Pressure 108 mmHg Diastolic Blood Pressure 59 mmHg LOW SpO2 97 % Pain Assessment: Controlled. General: Awake, Alert, Appropriate. Respiratory: Adequate air exchange. Cardiovascular: Stable, Normal peripheral perfusion. Neurological: Normal sensory function, Normal motor function. Assessment Anesthetic outcome No anesthetic complications noted. Adequate pain relief. able to void without difficulty, able to ambulate with assist, tolerating PO intake, no N/V. Review / Management Condition: Stable. Plan Transfer/Discharge: Transfer/Discharge Discharge when meets criteria ( To home ). Normal [facility] Comment on above: Result Comment: Elec tronically Signed By: Tone Gates DO, Steven Rogers\.br\Date and Time Signed: 04/12/23 09:05 EDT t-TRANSGLUTAMINASE IgAon tTG IgA Qn (S) <2 Invalid Interpretation Code 0-3 [facility] Comment on above: Result Comment: Nega tive 0 - 3 Weak Positive 4 - 10 Positive >10 Tissue Transglutaminase (tTG) has been identified as the endomysial antigen. Studies have demonstr- ated that endomysial IgA antibodies have over 99% specificity for gluten sensitive enteropathy. Performed at: [facility] [id number] PhD Fransico Shin Performed By: #### 2 035146, 6074128, 96433687, 35833547, 35837165, 2922787, 9162037, 00765015, 9140508, 9456122, 28977517 ####[facility] [place] [address] CBC w/Indiceson 04-11-2023 Erythrocyte distribution width (RBC) [Ratio] 12.9 % Normal 10.9-14.2 [facility] Comment on above: Performed By: #### 2 750294, 3296176, 32877963, 41293619, 20582077, 3394927, 7013068, 64362022, 4731477, 8747298, 18080948 #### [facility] [address] [place] [address] Hematocrit (Bld) [Volume fraction] 43.3 % Normal 37.7-49.0 [facility] Comment on above: Performed By: #### 2 623639, 6698962, 15939475, 98382262, 08453486, 7689816, 0693922, 13390360, 5403836, 3038564, 88835311 #### [facility] [address] [place] [address] Hemoglobin (Bld) [Mass/Vol] 14.0 g/dL Normal 13.5-17.5 [facility] Comment on above: Performed By: #### 2 992361, 0354451, 29408072, 44919465, 04339379, 9215862, 7424860, 45756348, 1250015, 1136802, 32262842 #### [facility] [address] [place] [address] MCH (RBC) [Entitic mass] 28.0 pg Normal 27.0-34.0 [facility] Comment on above: Performed By: #### 2 793348, 1138914, 41109481, 83806264, 27305094, 8246664, 2936211, 88386167, 8334302, 4448627, 49309420 #### [facility] [address] [place] [address] MCHC (RBC) [Mass/Vol] 32.3 g/dL Normal 31.4-36.0 [facility] Comment on above: Performed By: #### 2 074919, 2772899, 12447930, 79248750, 27319968, 4637041, 6900248, 70390490, 7462344, 4239280, 96438700 #### [facility] [address] [place] [address] MCV (RBC) [Entitic vol] 86.8 fL Normal 80.0-100.0 [facility] Comment on above: Performed By: #### 2 155428, 3913002, 80573178, 85287784, 25387561, 5229763, 8884025, 58588889, 2611607, 1171076, 89351239 #### [facility] [address] [place] [address] Platelet mean volume (Bld) [Entitic vol] 8.5 fL Normal 6.4-10.8 [facility] Comment on above: Performed By: #### 2 060286, 6440548, 13505924, 03141328, 30865517, 4260007, 8257695, 66007036, 4797895, 4101925, 09121826 #### [facility] [address] [place] [address] Platelets (Bld) [#/Vol] 240.0 E9/L Normal 150.0-500.0 [facility] Comment on above: Performed By: #### 2 890776, 5327123, 62823871, 04468592, 86938973, 2289729, 8987468, 34083816, 2194911, 0578169, 72184939 #### [facility] [address] [place] [address] RBC (Bld) [#/Vol] 5.0 E12/L Normal 4.3-5.9 [facility] Comment on above: Performed By: #### 2 435191, 2421177, 04513734, 92257655, 59938836, 7269662, 9522785, 29261849, 9602815, 7897310, 46875362 #### [facility] [address] [place] [address] WBC corrected for nucl RBC Auto (Bld) [#/Vol] 3.1 E9/L Low 4.0-11.0 [facility] Comment on above: Performed By: #### 2 935439, 3621611, 48226059, 60289220, 63148563, 9137701, 8572411, 62819895, 4862972, 6803322, 20243561 #### [facility] [address] [id number] CHEMISTRYOrdered By: SYSTEM SYSTEM on 04-11-2023 Albumin [Mass/Vol] 4.4 g/dL Normal 3.3 - 5.0 gm/dL [facility] Albumin/Globulin [Mass ratio] 1.8 {ratio} Normal 1.1 - 2.2 [facility] ALP [Catalytic activity/Vol] 53 [iU]/d Normal 21 - 98 Int._Unit/L [facility] ALT No additional P-5'-P [Catalytic activity/Vol] 11 [iU]/d Normal 6 - 46 Int._Unit/L [facility] Anion gap [Moles/Vol] 11 mmol/L Normal 6 - 16 mEq/L [facility] AST [Catalytic activity/Vol] 14 [iU]/d Normal 5 - 43 Int._Unit/L [facility] Bilirubin [Mass/Vol] 0.5 mg/dL Normal 0.0 - 1 .1 mg/dL [facility] Calcium [Mass/Vol] 9.2 mg/dL Normal 8.9 - 11. 1 mg/dL [facility] Chloride [Moles/Vol] 109 mmol/L Normal 101 - 1 11 mmol/L [facility] CO2 [Moles/Vol] 24 mmol/L Normal 21 - 31 mmol/L [facility] Creatinine [Mass/Vol] 1.0 mg/dL Normal 0.5 - 1.3 mg/dL [facility] CRP [Mass/Vol] 1.3 mg/dL Normal <=1.9mg/dL [facility] Remis ol Ferritin [Mass/Vol] 101 ng/mL Normal 24 - 336 ng/mL [facility] GFR/1.73 sq M.predicted among non-blacks MDRD (S/P/Bld) [Vol rate/Area] 110 mL/min/1.73 m2 Normal >=59mL/min/1 .73 m2 [facility] Chem S Globulin (S) [Mass/Vol] 2.4 g/dL Normal 1.4 - 4.0 gm/dL [facility] Glucose [Mass/Vol] 95 mg/dL Normal 55 - 199 mg/dL [facility] Iron [Mass/Vol] 94 ug/dL Normal 35 - 153 mcg/dL [facility] Iron binding capacity [Mass/Vol] 281 ug/dL Normal 250 - 400 mcg/dL [facility] Potassium [Moles/Vol] 3.9 mmol/L Normal 3.5 - 5.3 mmol/L [facility] Protein [Mass/Vol] 6.8 g/dL Normal 6.0 - 7.8 gm/dL [facility] Sodium [Moles/Vol] 140 mmol/L Normal 135 - 145 mmol/L [facility] Transferrin [Mass/Vol] 201 mg/dL Normal 200 - 370 mg/dL [facility] TSH Qn 1.09 m[IU]/L Normal 0.34 - 5.60 mcIU/mL [facility] Urea nitrogen [Mass/Vol] 12 mg/dL Normal 5 - 21 mg/dL [facility] Urea nitrogen/Creatinine [Mass ratio] 12 mg/mg Normal 10 - 20 [facility] CMPon 04-11-2023 Anion gap [Moles/Vol] 11 mmol/L Normal 6-16 [facility] Comment on above: Performed By: #### 2 214263, 3885562, 25984544, 58131481, 30924552, 8866323, 4224652, 85123793, 7815239, 3202517, 60874636 ####[facility] [address] [place] [address] Chloride [Moles/Vol] 109 mmol/L Normal 101-111 [facility] Comment on above: Performed By: #### 2 316402, 1110320, 91114043, 66199178, 60261469, 4841418, 4445303, 92467442, 8660620, 6077388, 46466512 ####[facility] [address] [place] [address] Albumin [Mass/Vol] 4.4 g/dL Normal 3.3-5.0 [facility] Comment on above: Performed By: #### 2 930472, 7738844, 72641709, 69163689, 99517467, 8644688, 1959153, 12839135, 2949202, 3374614, 65414024 ####[facility] [address] [place] [address] Albumin/Globulin (S) [Mass conc ratio] 1.8 Normal 1.1-2.2 [facility] Comment on above: Performed By: #### 2 939163, 3691047, 57859257, 73583064, 19010781, 2465499, 0256822, 81495210, 1593485, 5461302, 15917001 ####[facility] [address] [place] [address] ALP [Catalytic activity/Vol] 53 Int._Unit/L Normal 21-98 [facility] Comment on above: Performed By: #### 2 847912, 6578344, 65749294, 03677598, 68905902, 0246441, 3558260, 33326505, 0100554, 6444247, 08817061 ####[facility] [address] [place] [address] ALT No additional P-5'-P [Catalytic activity/Vol] 11 Int._Unit/L Normal 6-46 [facility] Comment on above: Performed By: #### 2 266528, 4463018, 32955311, 77479707, 79380769, 9153903, 2970321, 80057260, 6262633, 1344617, 11818416 ####[facility] [address] [place] [address] AST [Catalytic activity/Vol] 14 Int._Unit/L Normal 5-43 [facility] Comment on above: Performed By: #### 2 506879, 8381425, 70242197, 92975544, 40365686, 2004651, 5505650, 90549553, 6870294, 5726571, 41193142 ####[facility] [address] [place] [address] Bilirubin [Mass/Vol] 0.5 mg/dL Normal 0.0-1.1 [facility] Comment on above: Performed By: #### 2 598794, 8057863, 46728078, 85085053, 07721683, 8564865, 8823398, 90009332, 9881872, 1799426, 07283673 ####[facility] [address] [place] [address] Calcium [Mass/Vol] 9.2 mg/dL Normal 8.9-11.1 [facility] Comment on above: Performed By: #### 2 988776, 8740317, 17221715, 18039378, 65686725, 3102264, 9395490, 19152350, 3922153, 5689526, 59869725 ####[facility] [address] [place] [address] CO2 [Moles/Vol] 24 mmol/L Normal 21-31 [facility] Comment on above: Performed By: #### 2 899749, 6448222, 72979185, 80962725, 20091876, 3858648, 1803620, 62404022, 2248958, 8582447, 81456582 ####[facility] [address] [place] [address] Creatinine [Mass/Vol] 1.0 mg/dL Normal 0.5-1.3 [facility] Comment on above: Performed By: #### 2 618911, 6348760, 00854756, 63047131, 75130180, 7469949, 8331239, 79239882, 9617925, 1169967, 47929673 ####[facility] [address] [place] [address] Globulin (S) [Mass/Vol] 2.4 g/dL Normal 1.4-4.0 [facility] Comment on above: Performed By: #### 2 470673, 6177932, 52797063, 75547183, 31773579, 2012488, 9999670, 22326272, 3491049, 3019509, 26374758 ####[facility] [address] [place] [address] Glucose [Mass/Vol] 95 mg/dL Normal 55-199 [facility] Comment on above: Result Comment: If t his glucose result represents a fasting glucose, interpretation should refer to the following reference range: 55-99 mg/dL Performed By: #### 2 279334, 1714398, 61059213, 44696150, 92588900, 5329747, 8409927, 11484451, 1883901, 2640828, 13465920 ####[facility] [address] [place] [address] Potassium [Moles/Vol] 3.9 mmol/L Normal 3.5-5.3 [facility] Comment on above: Performed By: #### 2 893981, 3086187, 15126364, 63679746, 00760901, 6926654, 0234997, 98821808, 3048118, 9967389, 95377599 ####[facility] [address] [place] [address] Protein [Mass/Vol] 6.8 g/dL Normal 6.0-7.8 [facility] Comment on above: Performed By: #### 2 941278, 5090593, 85452215, 93162389, 67508026, 2221227, 3898336, 17462309, 9157931, 5580891, 81537674 ####[facility] [address] [place] [address] Sodium [Moles/Vol] 140 mmol/L Normal 135-145 [facility] Comment on above: Performed By: #### 2 498249, 8361356, 33623924, 20035615, 26904683, 3575088, 3768697, 64491597, 2011178, 3929779, 85787488 ####[facility] [address] [place] [address] Urea nitrogen [Mass/Vol] 12 mg/dL Normal 5-21 [facility] Comment on above: Performed By: #### 2 357224, 2608142, 84693240, 50483038, 78661382, 2430847, 1403307, 89688333, 2186677, 5878598, 16589857 ####[facility] [address] [place] [address] Urea nitrogen/Creatinine [Mass ratio] 12 No Units Normal 10-20 [facility] Comment on above: Performed By: #### 2 410554, 2350248, 01676034, 69672043, 09065213, 0103463, 9434466, 52070089, 1418040, 5798123, 31008892 ####[facility] [address] [place] [address] CRPon 04-11-2023 CRP [Mass/Vol] 1.3 mg/dL Normal <=1.9 [facility] Comment on above: Performed By: #### 2 971443, 4546806, 62204431, 40535280, 84566194, 2694970, 9165221, 10276479, 8734394, 9221213, 84327923 ####[facility] [address] [place] [address] Consent for Treatmenton 03-31 Consent for Treatment [id number] Normal [facility] Discharge Instructionson Discharge Instructions PACO EDMONDS :2005 Visit Date:04/11/2023 Inpatient Discharge Instructions Your Care Team Admitting Physician - Sunday MEDRANO MD Referring Physician - Sunday MEDRANO MD Reason for Your Visit DYSPHAGIA, WEIGHT LOSS Your Diagnosis Dysphagia Tests Performed CBC w/ Indices -- Results Pending -- Comprehensive Metabolic Panel -- Results Pending -- CRP -- Results Pending -- eGFR -- Results Pending -- Ferritin -- Results Pending -- IgA, Quant. -- Results Pending -- Iron Level -- Results Pending -- Pathology Tissue Exam -- Results Pending -- Sedimentation Rate Automated -- Results Pending -- t-Transglutaminase IgA -- Results Pending -- TIBC Calculated -- Results Pending -- TSH -- Results Pending -- Please visit your patient portal for your results or contact your primary care physician. This Is Your Medications List mupirocin topical (mupirocin topical 2% ointment) omeprazole (omeprazole 20 mg Cap-DR) Procedure History Dental surgery service (01/19/2020), Laparoscopic appendectomy (11/27/2018). Discharge Vitals Temperature (Temporal Artery) 36.2 ?C Heart Rate (Monitored) 93 Respiratory Rate 19 Blood Pressure 109/64 Height 180 cm Weight 48.2 kg BMI 14.88 What to do next Instructions From Your Doctor Event Name Event Result Discharge Activity Resume normal activities in 24 hours Discharge Restrictions No driving for 24 hrs, Do not operate machinery or tools, Do not make important decisions for 24 hours Discharge Diet(s) Regular Pharmacy Information [facility] Discharge Instructions Discharge Instructions New Follow Up Appointments after Discharge Follow Up with CAMILO BELL, SLIM Brand, MED When: Comments: office will call for follow up Where: [address] [place] [address] [address] [place] [address] Medications What How Much When Why Instructions Next Dose Unchanged mupirocin topical (mupirocin topical 2% ointment) 1 Application Topical 3 times a day Puncture wound of finger of left hand Unchanged omeprazole (omeprazole 20 mg Cap-DR) 1 Capsules By Mouth Every day Duration: 14 Days Test Results No qualifying data available. Allergies Phenergan (HIVES) cephalexin (Eruption) iodinated radiocontrast dyes (Eruption) morphine (Eruption) Problems Ongoing - Any problem that you are currently receiving treatment for. Acute costochondritis Acute pharyngitis Acute pharyngitis Dysphagia Exposure to COVID-19 virus Insomnia Outbursts of anger Puncture wound of finger of left hand Right shoulder pain Smoker Underweight in childhood with BMI < 5th percentile Upper respiratory infection Weight loss Well child check Historical - Any problem that you are no longer receiving treatment for. Acute upper respiratory infection Education Materials Upper Endoscopy, Adult, Care After This sheet gives you information about how to care for yourself after your procedure. Your health care provider may also give you more specific instructions. If you have problems or questions, contact your health care provider. What can I expect after the procedure? After the procedure, it is common to have: ? A sore throat. ? Mild stomach pain or discomfort. ? Bloating. ? Nausea. Follow these instructions at home: ? Follow instructions from your health care provider about what to eat or drink after your procedure. ? Return to your normal activities as told by your health care provider. Ask your health care provider what activities are safe for you. ? Take dvfq-vft-sfnvzhv and prescription medicines only as told by your health care provider. ? If you were given a sedative during the procedure, it can affect you for several hours. Do not drive or operate machinery until your health care provider says that it is safe. ? Keep all follow-up visits as told by your health care provider. This is important. Contact a health care provider if you have: ? A sore throat that lasts longer than one day. ? Trouble swallowing. Get help right away if: ? You vomit blood or your vomit looks like coffee grounds. ? You have: ? A fever. ? Bloody, black, or tarry stools. ? A severe sore throat or you cannot swallow. ? Difficulty breathing. ? Severe pain in your chest or abdomen. Summary ? After the procedure, it is common to have a sore throat, mild stomach discomfort, bloating, and nausea. ? If you were given a sedative during the procedure, it can affect you for several hours. Do not drive or operate machinery until your health care provider says that it is safe. ? Follow instructions from your health care provider about what to eat or drink after your procedure. ? Return to your normal activities as told by your health care provider. This information is not intended to replace advice given to you by (more content not included)... Normal [facility] Comment on above: Result Comment: Blanca burt Signed By: Ngozi Douglas RN\.paul\Date and Time Signed: 04/11/23 12:43 EDT Endoscopic Procedure Report - Otheron 04-11-2023 Endoscopic Procedure Report - Other Patient: PACO EDMONDS Age: 18 years Sex: Male : 2005 Associated Diagnoses: None Author: Sunday MEDRANO MD Pre-Procedure Procedure Date 04/11/2023 12:15:00 . Procedure Type: Esophagogastroduodeno scopy. Procedure provider Performed by Sunday Medrano MD. Current history and physical Documented on chart. Informed Consent After discussing the rationale, risks and benefits, and alternatives to this procedure, the patient provided signed consent for the procedure. Pre-procedure diagnosis: Dysphagia/ odynophagia. Weight loss. Medications Anticoagulant/antipla telet No anticoagulation or antiplatelet. ASA Classification: Class II. . Monitoring: See anesthesia record. . Procedure The procedure was performed in the hospital. See anesthesia record for sedation given during procedure. The patient was positioned starting in the left lateral decubitus position and with safety measures. Endoscope type used was an adult-size, introduced orally, advanced to the 2nd portion of the duodenum. No difficulty was encountered during the procedure. Views were good. Gastric biopsies were taken of the fundus and of the antrum. The patient tolerated the procedure well. Findings 1. 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 Proximal and distal esophageal biopsies obtained to rule out eosinophilic esophagitis 2. Normal gastric mucosa, random biopsies obtained to rule out H. pylori 3. Normal duodenum, biopsied to rule out celiac disease Images Procedure images: [id number] . Post-Procedure Complications: none. Estimated blood loss: none. Specimens: sent to pathology. Devices/ implants: none left in place. Impression and Plan 1. 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 Proximal and distal esophageal biopsies obtained to rule out eosinophilic esophagitis 2. Normal gastric mucosa, random biopsies obtained to rule out H. pylori 3. Normal duodenum, biopsied to rule out celiac disease Recommendations: 1. Awaiting pathology report. 2. GI clinic follow-up in 2 weeks 3. Celiac panel, CBC, CMP, CRP, sedimentation rate, TSH 4. Iron panel(strong family history of hemochromatosis) 4. If above normal, then proceed with abdomen and pelvic CT scan and outpatient colonoscopy Normal [facility] Comment on above: Result Comment: Elec tronically Signed By: Sunday MEDRANO MD\.br\Date and Time Signed: 04/11/23 12:17 EDT Other Comment: Dana arguello Attachment - attachment storage system not supported [id number] Can be viewed in source system Ferritinon 04-11-2023 Ferritin [Mass/Vol] 101 ng/mL Normal 24-336 [facility] Comment on above: Result Comment: NORM ALS MEN <30 YRS 16-132 ng/mL MEN >30 YRS 8-338 ng/mL WOMEN (PREMEN) 6-104 ng/mL WOMEN (POSTMEN) 12-210 ng/mL Performed By: #### 2 [id number], 8324227, 40030312, [id number], 18360025, 5546201, 6428601, 09544545, 3461831, 3444454, [id number] ####[facility] [address] [place] [address] HEMATOLOGYOrdered By: Layla Hager on 04-11-2023 Erythrocyte distribution width (RBC) [Ratio] 12.9 % Normal 10.9 - 14.2 % [facility] HemeAutoSS Hematocrit (Bld) [Volume fraction] 43.3 % Normal 37.7 - 49.0 % [facility]eAutoSS Hemoglobin (Bld) [Mass/Vol] 14.0 g/dL Normal 13.5 - 17.5 gm/dL [facility]eAutoSS MCH (RBC) [Entitic mass] 28.0 pg Normal 27.0 - 34.0 pg [facility]eAutoSS MCHC (RBC) [Mass/Vol] 32.3 g/dL Normal 31.4 - 36.0 gm/dL [facility]eAutoSS MCV (RBC) [Entitic vol] 86.8 fL Normal 80.0 - 100.0 fL [facility]Auto[facility] Platelet mean volume (Bld) [Entitic vol] 8.5 fL Normal 6.4 - 10.8 fL [facility]eAutoSS Platelets (Bld) [#/Vol] 240.0 E9/L Normal 150.0 - 500.0 E9/L [facility]eAutoSS RBC (Bld) [#/Vol] 5.0 E12/L Normal 4.3 - 5.9 E12/L [facility] Sed Rate Automated 3 mm/h Normal 0 - 19 mm/hr [facility]eAutoSS WBC corrected for nucl RBC Auto (Bld) [#/Vol] 3.1 E9/L Low 4.0 - 11.0 E9/L [facility] Ironon 04-11-2023 Iron [Mass/Vol] 94 microgram/dL Normal 35-153 [facility] Comment on above: Performed By: #### 2 424193, 9193687, 11458557, 33167127, 64504373, 2992666, 1539677, 48687347, 0497704, 2370547, [id number] ####[facility] [address] [place] [address] Main OR PACU I Recordon 03-31 Main OR PACU I Record PACU Phase I Docum ent Type FT Summary Primary Physician: Sunday MEDRANO MD Finalized Date/Time: 04/11/23 14:23:50 Pt. Name: PACO EDMONDS/Sex: 2005 Male Med Rec #: [id number] Physician: Sunday MEDRANO MD Financial #: [id number] Pt. Type: O Room/Bed: / Admit/Disch: 04/11/23 10:09:04 - Institution: Case Times PACU I FT Pre-Care Text: Identifies barriers to communication and implements measures to provide psychological support Develops individualized plan of care, and ensures continuity of care Maintains patient's dignity and privacy, and maintains patient confidentiality Identifies and reports philosophical, cultural, and spiritual beliefs and values Identifies individual values and wishes concerning care Implements aseptic technique, and administers prescribed antibiotic therapy and immunizing agents as ordered Evaluates postoperative tissue perfusion Implements thermoregulation measures, and monitors body temperature Evaluates postoperative respiratory status Evaluates postoperative cardiac status Evaluates postoperative neurological status Assesses pain control, collaborated in initiating patient-controlled analgesia and implements alternative methods of pain control Verifies allergies, administers prescribed medications and solutions, evaluates response to medications Entry 1 In PACU I 04/11/23 12:20:00 Discharge from PACU 04/11/23 12:56:00 I Outcomes Met? Yes Last Modified By: Ngozi Douglas RN 04/11/23 14:19:45 Post-Care Text: The patient demonstrates knowledge of the expected response to the operative or invasive procedure The patient's care is consistent with the individualized perioperative plan of care The patient's right to privacy is maintained The patient's value system, lifestyle, ethnicity, and culture are considered, respected, and incorporated into the perioperative plan of care The patient participates in decisions affecting his or her perioperative plan of care The patient is free from signs and symptoms of infection The patient has wound/tissue perfusion consistent with or improved from baseline levels established preoperatively The patient is at or returning to normothermia at the conclusion of the immediate postoperative period The patient's respiratory function is consistent with or improved from baseline levels established preoperatively The patient's cardiovascular status is consistent with or improved from baseline levels established preoperatively The patient's cardiovascular status is consistent with or improved from baseline levels established preoperatively The patient demonstrates and/or reports adequate pain control throughout the perioperative period The patient received appropriate medication(s), safely administered during the perioperative period Acuity Level PACU I FT Entry 1 Start Time 04/11/23 12:20:00 Stop Time 04/11/23 12:56:00 Acuity Level Acuity Level I Last Modified By: Ngozi Douglas RN 04/11/23 14:19:58 Finalized By: Ngozi Douglas RN Document Signatures Signed By: Ngozi Douglas RN 04/11/23 14:23 Normal [facility] Main OR Preoperative Recordo n 04-11-2023 Main OR Preoperative Record Holding Area Document Type FT Summary Primary Physician: Sunday MEDRANO MD Finalized Date/Time: 04/11/23 10:30:57 Pt. Name: PACO EDMONDS/Sex: 2005 Male Med Rec #: [id number] Physician: Sunday MEDRANO MD Financial #: [id number] Pt. Type: O Room/Bed: / Admit/Disch: 04/11/23 10:09:04 - Institution: Case Times Holding FT Pre-Care Text: Verifies consent for planned procedure, identifies individual values and wishes concerning care, includes family members in perioperative teaching Secures patient's records' belongings, and valuables, maintains patient's dignity and privacy, and maintains patient confidentiality Entry 1 In Holding 04/11/23 10:29:00 Outcomes Met? Yes Last Modified By: Timoteo Puga RN 04/11/23 10:29:34 Post-Care Text: The patient participates in decisions affecting his or her perioperative plan of care The patient's right to privacy is maintained Surgery Checklist FT Entry 1 Patient Birthday, ID Band Procedure History and Physical, Identification: Check, Patient Verification: Surgical Consent, With Participation Patient NPO after Midnight: Yes Results Reviewed n/a Comments: Personal Items: Glasses Personal Items glasses Comment: Limitations: none Complaints of Pain: No Pain Comment: pt denies pain at this Operative Site n/a time Marking: Marked By: n/a Location: n/a Availability Equipment Verified: Does Patient Smoke Yes If Yes to Smoking. vapes Cigars or Cigarettes. How much per day? Patient states Yes Comment - Adult Spouse- Gwen postop adult Supervision supervision available Case Cancelled in No Holding Area see comments below for reason Last Modified By: Timoteo Puga RN 04/11/23 10:30:55 Finalized By: Timoteo Puga RN Document Signatures Signed By: Timoteo Puga RN 04/11/23 10:30 Normal [facility] Monitor Recordon 04-11-2023 Monitor Record [id number]# 1.00CD:127 Normal [facility] Patient Education - Texton 0 04-11-2023 Patient Education - Text Gastroenterology Upper Endoscopy, Adult, Care After This sheet gives you information about how to care for yourself after your procedure. Your health care provider may also give you more specific instructions. If you have problems or questions, contact your health care provider. What can I expect after the procedure? After the procedure, it is common to have: ? A sore throat. ? Mild stomach pain or discomfort. ? Bloating. ? Nausea. Follow these instructions at home: ? Follow instructions from your health care provider about what to eat or drink after your procedure. ? Return to your normal activities as told by your health care provider. Ask your health care provider what activities are safe for you. ? Take ohes-htt-dahbfhn and prescription medicines only as told by your health care provider. ? If you were given a sedative during the procedure, it can affect you for several hours. Do not drive or operate machinery until your health care provider says that it is safe. ? Keep all follow-up visits as told by your health care provider. This is important. Contact a health care provider if you have: ? A sore throat that lasts longer than one day. ? Trouble swallowing. Get help right away if: ? You vomit blood or your vomit looks like coffee grounds. ? You have: ? A fever. ? Bloody, black, or tarry stools. ? A severe sore throat or you cannot swallow. ? Difficulty breathing. ? Severe pain in your chest or abdomen. Summary ? After the procedure, it is common to have a sore throat, mild stomach discomfort, bloating, and nausea. ? If you were given a sedative during the procedure, it can affect you for several hours. Do not drive or operate machinery until your health care provider says that it is safe. ? Follow instructions from your health care provider about what to eat or drink after your procedure. ? Return to your normal activities as told by your health care provider. This information is not intended to replace advice given to you by your health care provider. Make sure you discuss any questions you have with your health care provider. Document Revised: 09/22/2020 Document Reviewed: 04/19/2019 [employer] Patient Education ? 2022 [employer]. Esophagitis Esophagitis is inflammation of the esophagus. The esophagus is the tube that carries food from the mouth to the stomach. Esophagitis can cause soreness or pain in the esophagus. This condition can make it difficult and painful to swallow. What are the causes? Most causes of esophagitis are not serious. Common causes of this condition include: ? Gastroesophageal reflux disease (GERD). This is when stomach contents move back up into the esophagus (reflux). ? Repeated vomiting. ? An allergic reaction, especially caused by food allergies (eosinophilic esophagitis). ? Injury to the esophagus by swallowing large pills with or without water, or swallowing certain types of medicines. ? Swallowing harmful chemicals, such as household cleaning products. ? Drinking a lot of alcohol. ? An infection of the esophagus. This most often occurs in people who have a weakened immune system. ? Radiation or chemotherapy treatment for cancer. ? Certain diseases such as sarcoidosis, Crohn's disease, and scleroderma. What are the signs or symptoms? Symptoms of this condition include: ? Difficult or painful swallowing. ? Pain with swallowing acidic liquids, such as citrus juices. You may also have pain when you burp. ? Chest pain and difficulty breathing. ? Nausea and vomiting. ? Pain in the abdomen. ? Weight loss. ? Ulcers in the mouth and white patches in the mouth (candidiasis). ? Fever. ? Coughing up blood or vomiting blood. ? Stool that is black, tarry, or bright red. How is this diagnosed? This condition may be diagnosed based on your medical history and a physical exam. You may also have other tests, including: ? A test to examine your esophagus and stomach with a small flexible tube with a camera (endoscopy). ? A test that measures the acidity level in your esophagus. ? A test that measures how much pressure is on your esophagus. ? A barium swallow or modified barium swallow to show the shape, size, and functioning of your esophagus. ? Allergy tests. How is this treated? Treatment for this condition depends on the cause of your esophagitis. In some cases, steroids or other medicines may be given to help relieve your symptoms or to treat the underlying cause of your condition. You may have to make some lifestyle changes, such as: ? Avoiding alcohol. ? Quitting any products that contain nicotine or tobacco. These products include cigarettes, chewing tobacco, and vaping devices, such as e-cigarettes. If you need help quitting, ask your health care provider. ? Changing your diet. ? Exercising. ? Changing your sleep habits and your sleep environment. Follow these instr (more content not included)... Normal [facility] Pre-Certification Formon Pre-Certification Form [id number]# 1.00CD:127 Normal [facility] Sed Rate Automatedon 023 Sed Rate Automated 3 mm/hr Normal 0-19 [facility] Comment on above: Performed By: #### 2 440807, 5054895, 69141106, 37641828, 36113559, 1870211, 9769393, 06052198, 6571787, 2777474, 76721462 #### [facility] [address] [place] [address] TIBC Calculatedon 04-11-2023 Iron binding capacity [Mass/Vol] 281 microgram/dL Normal 250-400 [facility] Comment on above: Performed By: #### 2 361641, 4292694, 10160271, 07415576, 64684504, 4128440, 7661151, 85980623, 4827862, 4838299, 82467453 ####[facility] [address] [place] [address] Transferrin [Mass/Vol] 201 mg/dL Normal 200-370 [facility] Comment on above: Performed By: #### 2 389397, 8021785, 43266278, 46717772, 34513070, 3186803, 6723831, 17032851, 6797331, 2810711, 97224268 ####[facility] [address] [place] [address] TSHon 04-11-2023 TSH Qn 1.09 m[IU]/L Normal 0.34-5.60 [facility] Comment on above: Performed By: #### 2 813287, 7708194, 36828154, 07149597, 52828867, 7196828, 1939008, 55734900, 8693320, 0425716, 75312064 ####[facility] [address] [place] [address] eGFRon 04-11-2023 GFR/1.73 sq M.predicted among non-blacks MDRD (S/P/Bld) [Vol rate/Area] 110 mL/min/1.73 m2 Normal >=59 [facility] Comment on above: Order Comment: Order added by Discern Expert. Result Comment: Physician Obstetrician santos kidney disease could be indicated at eGFR's of less than 60 mL/min/1.73m2. Kidney failure is indicated at less than 15 mL/min/1.73m2. Performed By: #### 2 617182, 1900348, 31578644, 64878571, 68952463, 9505296, 8378152, 74267809, 4707393, 7676575, 70620007 #### [facility] [address] [place] [address] Auto Diffon 04-10-2023 Basophils/100 WBC (Bld) 0.9 % Normal 0.0-2.0 [facility] Comment on above: Order Comment: Order Added by Discern Expert. Performed By: #### 2 399475, 0553374 ####[address] [address] Basophils/Leukocytes Auto (Bld) [Pure # fraction] 0.0 E9/L Normal 0.0-0.2 [facility] Comment on above: Order Comment: Order Added by Discern Expert. Performed By: #### 2 204199, 8362342 ####[address] [address] Eosinophils/100 WBC (Bld) 3.1 % Normal 0.0-8.0 [facility] Comment on above: Order Comment: Order Added by Discern Expert. Performed By: #### 2 014795, 6077385 ####[address] [address] Eosinophils/Leukocyte s Auto (Bld) [Pure # fraction] 0.1 E9/L Normal 0.0-0.5 [facility] Comment on above: Order Comment: Order Added by Discern Expert. Performed By: #### 2 931230, 6376521 ####[address] [address] Lymphocytes/100 WBC (Bld) 47.7 % Normal 14.0-50.0 [facility] Comment on above: Order Comment: Order Added by Discern Expert. Performed By: #### 2 816778, 8681123 ####[address] [address] Lymphocytes/Leukocyte s Auto (Bld) [Pure # fraction] 2.1 E9/L Normal 1.0-4.0 [facility] Comment on above: Order Comment: Order Added by Discern Expert. Performed By: #### 2 096146, 2375486 ####[address] [address] Monocytes/100 WBC (Bld) 10.2 % Normal 4.0-14.0 [facility] Comment on above: Order Comment: Order Added by Discern Expert. Performed By: #### 2 820165, 3793165 ####[address] [address] Monocytes/Leukocytes Auto (Bld) [Pure # fraction] 0.5 E9/L Normal 0.2-1.0 [facility] Comment on above: Order Comment: Order Added by Discern Expert. Performed By: #### 2 310413, 2271583 ####[address] [address] Neutrophils/100 WBC (Bld) 38.1 % Normal 36.0-75.0 [facility] Comment on above: Order Comment: Order Added by Discern Expert. Performed By: #### 2 465412, 2817036 ####[address] [address] Neutrophils/Leukocyte s Auto (Bld) [Pure # fraction] 1.7 E9/L Low 2.0-7.5 [facility] Comment on above: Order Comment: Order Added by Discern Expert. Performed By: #### 2 229173, 8542800 ####[address] [address] CBC w/ Auto Diffon 3 Erythrocyte distribution width (RBC) [Ratio] 12.8 % Normal 10.9-14.2 [facility] Comment on above: Performed By: #### 2 459903, 4286805 ####[address] [address] Hematocrit (Bld) [Volume fraction] 46.5 % Normal 37.7-49.0 [facility] Comment on above: Performed By: #### 2 784527, 3242261 ####[address] [address] Hemoglobin (Bld) [Mass/Vol] 15.5 g/dL Normal 13.5-17.5 [facility] Comment on above: Performed By: #### 2 879944, 7410034 ####[address] [address] MCH (RBC) [Entitic mass] 28.7 pg Normal 27.0-34.0 [facility] Comment on above: Performed By: #### 2 250490, 0775914 ####[address] [address] MCHC (RBC) [Mass/Vol] 33.4 g/dL Normal 31.4-36.0 [facility] Comment on above: Performed By: #### 2 760551, 0154369 ####[place] [address] MCV (RBC) [Entitic vol] 85.9 fL Normal 80.0-100.0 [facility] Comment on above: Performed By: #### 2 438812, 8105574 ####[place] [address] Platelet mean volume (Bld) [Entitic vol] 8.6 fL Normal 6.4-10.8 [facility] Comment on above: Performed By: #### 2 929543, 2546767 ####[address] [address] Platelets (Bld) [#/Vol] 247.0 E9/L Normal 150.0-500.0 [facility] Comment on above: Performed By: #### 2 444493, 5653162 ####[address] [address] RBC (Bld) [#/Vol] 5.4 E12/L Normal 4.3-5.9 [facility] Comment on above: Performed By: #### 2 027745, 7237574 ####[address] [address] WBC corrected for nucl RBC Auto (Bld) [#/Vol] 4.5 E9/L Normal 4.0-11.0 [facility] Comment on above: Performed By: #### 2 421866, 3402224 ####[facility] [address] [place] [address] Consent for Procedure/Surger yon 04-10-2023 Consent for Procedure/Surgery [id number]#1 .00CD:127 Normal [facility] Consent for Treatmenton 03-31 Consent for Treatment [id number]#1 .00CD:127 Normal [facility] Gastroenterology Office/Clin ic Noteon 04-10-2023 Gastroenterology Office/Clinic Note Chief Complaint Unable to swallow foods and is having trouble swallowing liquids. HPI Staff Patient is a 18 year old male that was seen in the ER 04/05/23 for dysphagia that started with a sore throat. Patient has not eaten solid foods for 3 weeks. Patient was unaware that omeprazole was prescribed and did not pickup. He also said that he would not be able to swallow the medication. Patient stated that he went [place] [facility] and was told that half of [place] just came in to the ER and he had 2 choices steroids or referral to gastro. Patient states that the ER did not check labs or do any other testing. They also prescribed oral medication when he was unable to swallow. History of Present Illness Patient is a 18-year-old male who presents for further evaluation of dysphagia. Presents with his mother today. Patient was previously evaluated in ED [place] [facility] [place] and note indicated patient felt food was going down slowly in esophagus. Patient had negative rapid strep test during evaluation in ED. ED provider indicated likely undiagnosed acid reflux and was started on trial of omeprazole 20 mg daily for 14 days. During today's visit, patient reports he has been having difficulty swallowing solids over the last 3 weeks. He reports initially he had mild sore throat 4 weeks ago and was having difficulty swallowing solids. He explains with difficulty swallowing solids, he has lost 20 pounds in the last 3 weeks. Is explains having difficulty swallowing dairy products and is avoiding dairy. Is currently on liquid diet as he is unable to eat solids currently with difficulty swallowing solids. He explains feeling urge to belch and is unable to and has discomfort described as pressure. Patient explains he was unaware of prescription for omeprazole and is currently unable to swallow pills. Patient's mother reports patient has always been thin. Patient can not recall when he last had a BM. Was previously having 1 formed BM daily previously. Denies black/bloody stools, nausea/vomiting, abdominal pain, fevers/chills, and denies having any other GI complaints. Review of Systems PHQ Score Initial Depression Screen Score: 0 ROS - Provider Constitutional: no fever, no chills. Skin: no Jaundice. ENMT: Yes dysphagia. Respiratory: no shortness of breath. Cardiovascular: no chest pain. Gastrointestinal: no nausea, no vomiting, no diarrhea, no GI bleeding. Physical Exam Vitals & Measurements T: 36.5 ?C(Temporal Artery) HR: 71(Peripheral) BP: 125/75 HT: 71 in HT: 180 cm WT: 48.2 kg WT: 106.04 lb BMI: 14.88 General: Well developed, well nourished, in no acute distress Head: Normocephalic/atrauma tic Lungs: Normal respiratory effort and clear to auscultation Cardio: Regular rate and rhythm, normal S1 and S2, no murmur, no rub Abdomen: Soft, non-distended, non-tender. Normoactive bowel sounds present in all 4 abdominal quadrants, bilaterally. Mental Status: Alert and oriented x3. Normal mood and affect Assessment/Plan 1. Dysphagia (R13.10: Dysphagia, unspecified) Difficulty swallowing solids over the last 3 weeks. Previously evaluated in ED 04/05/23 and had negative strep. Is feeling urge to belch and is unable to and has discomfort described as pressure. Ordered EGD with dilation. Educated if no improvement or worsening symptoms to be further evaluated in ER. Ordered: EGD Endoscopy (Hospital Procedure) 2. Weight loss (R63.4: Abnormal weight loss) Unable to swallow solids. Has lost 20 pounds in the last 3 weeks. Is currently on liquid diet for the last 3 weeks. BMI low at 14.88. Likely related to inability to eat solids currently related to dysphagia. Ordered CBC/CMP. Ordered EGD. Educated to start Boost 1 can BID. If no improvement or worsening symptoms, patient to be further evaluated in ER. Ordered: CBC w/ Auto Diff Comprehensive Metabolic Panel EGD Endoscopy (Hospital Procedure) Follow-up With When Contact Information Estella Virk CNP Within 1 week Additional Instructions: Following EGD with dilation. Patient Education Dysphagia Problem List/Past Medical History Ongoing Acute costochondritis Acute pharyngitis Acute pharyngitis Dysphagia Exposure to COVID-19 virus Insomnia Outbursts of anger Puncture wound of finger of left hand Right shoulder pain Smoker Underweight in childhood with BMI < 5th percentile Upper respiratory infection Weight loss Well child check Historical Acute upper respiratory infection Procedure/Surgical History Dental surgery service (01/19/2020), Laparoscopic appendectomy (11/27/2018). Medications mupirocin topical 2% ointment, 1 kenny, Topical, TID, Not taking omeprazole 20 mg Cap-DR, 20 mg= 1 cap(s), Oral, Daily, Not taking Allergies Phenergan (HIVES) cephalexin (Eruption) iodinated radiocontrast dyes (Eruption) morphine (Eruption) Social History Alcohol - Denies Alcohol Use, 01/18/2019 Household alcohol concerns: No., 05/03/2019 Substance [place] (more content not included)... Normal [facility] Comment on above: Result Comment: Elec tronically Signed By: Sully SWAIN, Estella Rogers\.br\Date and Time Signed: 04/10/23 09:41 EDT HEMATOLOGYOrdered By: SYSTEM SYSTEM on 04-10-2023 Basophils/100 WBC (Bld) 0.9 % Normal 0.0 - 2.0 % [facility] Basophils/Leukocytes Auto (Bld) [Pure # fraction] 0.0 E9/L Normal 0.0 - 0.2 E9/L [facility] Eosinophils/100 WBC (Bld) 3.1 % Normal 0.0 - 8.0 % [facility] Eosinophils/Leukocyte s Auto (Bld) [Pure # fraction] 0.1 E9/L Normal 0.0 - 0.5 E9/L [facility] Lymphocytes/100 WBC (Bld) 47.7 % Normal 14.0 - 50.0 % [facility] Lymphocytes/Leukocyte s Auto (Bld) [Pure # fraction] 2.1 E9/L Normal 1.0 - 4.0 E9/L [facility] Monocytes/100 WBC (Bld) 10.2 % Normal 4.0 - 14.0 % [facility] Monocytes/Leukocytes Auto (Bld) [Pure # fraction] 0.5 E9/L Normal 0.2 - 1.0 E9/L [facility] Neutrophils/100 WBC (Bld) 38.1 % Normal 36.0 - 75.0 % [facility] Neutrophils/Leukocyte s Auto (Bld) [Pure # fraction] 1.7 E9/L Low 2.0 - 7.5 E9/L [facility] HEMATOLOGYOrdered By: Glendy ackerman on 04-10-2023 Erythrocyte distribution width (RBC) [Ratio] 12.8 % Normal 10.9 - 14.2 % [facility] Hematocrit (Bld) [Volume fraction] 46.5 % Normal 37.7 - 49.0 % [facility] Hemoglobin (Bld) [Mass/Vol] 15.5 g/dL Normal 13.5 - 17.5 gm/dL [facility] MCH (RBC) [Entitic mass] 28.7 pg Normal 27.0 - 34.0 pg [facility] MCHC (RBC) [Mass/Vol] 33.4 g/dL Normal 31.4 - 36.0 gm/dL [facility] MCV (RBC) [Entitic vol] 85.9 fL Normal 80.0 - 100.0 fL [facility] Platelet mean volume (Bld) [Entitic vol] 8.6 fL Normal 6.4 - 10.8 fL [facility] Platelets (Bld) [#/Vol] 247.0 E9/L Normal 150.0 - 500.0 E9/L [facility] RBC (Bld) [#/Vol] 5.4 E12/L Normal 4.3 - 5.9 E12/L [facility] WBC corrected for nucl RBC Auto (Bld) [#/Vol] 4.5 E9/L Normal 4.0 - 11.0 E9/L [facility] Patient Educationon 04-10-20 Patient Education ENT Dysphagia Dysphagia is trouble swallowing. This condition occurs when solids and liquids stick in a person's throat on the way down to the stomach, or when food takes longer to get to the stomach than usual. You may have problems swallowing food, liquids, or both. You may also have pain while trying to swallow. It may take you more time and effort to swallow something. What are the causes? This condition may be caused by: ? Muscle problems. These may make it difficult for you to move food and liquids through the esophagus, which is the tube that connects your mouth to your stomach. ? Blockages. You may have ulcers, scar tissue, or inflammation that blocks the normal passage of food and liquids. Causes of these problems include: ? Acid reflux from your stomach into your esophagus (gastroesophageal reflux). ? Infections. ? Radiation treatment for cancer. ? Medicines taken without enough fluids to wash them down into your stomach. ? Stroke. This can affect the nerves and make it difficult to swallow. ? Nerve problems. These prevent signals from being sent to the muscles of your esophagus to squeeze (contract) and move what you swallow down to your stomach. ? Globus pharyngeus. This is a common problem that involves a feeling like something is stuck in your throat or a sense of trouble with swallowing, even though nothing is wrong with the swallowing passages. ? Certain conditions, such as cerebral palsy or Parkinson's disease. What are the signs or symptoms? Common symptoms of this condition include: ? A feeling that solids or liquids are stuck in your throat on the way down to the stomach. ? Pain while swallowing. ? Coughing or gagging while trying to swallow. Other symptoms include: ? Food moving back from your stomach to your mouth (regurgitation). ? Noises coming from your throat. ? Chest discomfort when swallowing. ? A feeling of fullness when swallowing. ? Drooling, especially when the throat is blocked. ? Heartburn. How is this diagnosed? This condition may be diagnosed by: ? Barium swallow X-ray. In this test, you will swallow a white liquid that sticks to the inside of your esophagus. X-ray images are then taken. ? Endoscopy. In this test, a flexible telescope is inserted down your throat to look at your esophagus and your stomach. ? CT scans or an MRI. How is this treated? Treatment for dysphagia depends on the cause of this condition: ? If the dysphagia is caused by acid reflux or infection, medicines may be used. These may include antibiotics or heartburn medicines. ? If the dysphagia is caused by problems with the muscles, swallowing therapy may be used to help you strengthen your swallowing muscles. You may have to do specific exercises to strengthen the muscles or stretch them. ? If the dysphagia is caused by a blockage or mass, procedures to remove the blockage may be done. You may need surgery and a feeding tube. You may need to make diet changes. Ask your health care provider for specific instructions. Follow these instructions at home: Medicines ? Take empm-bku-hkqdxol and prescription medicines only as told by your health care provider. ? If you were prescribed an antibiotic medicine, take it as told by your health care provider. Do not stop taking the antibiotic even if you start to feel better. Eating and drinking ? Make any diet changes as told by your health care provider. ? Work with a diet and community nutrition educator (dietitian) to create an eating plan that will help you get the nutrients you need in order to stay healthy. ? Eat soft foods that are easier to swallow. ? Cut your food into small pieces and eat slowly. Take small bites. ? Eat and drink only when you are sitting upright. ? Do not drink alcohol or caffeine. If you need help quitting, ask your health care provider. General instructions ? Check your weight every day to make sure you are not losing weight. ? Do not use any products that contain nicotine or tobacco. These products include cigarettes, chewing tobacco, and vaping devices, such as e-cigarettes. If you need help quitting, ask your health care provider. ? Keep all follow-up visits. This is important. Contact a health care provider if: ? You lose weight because you cannot swallow. ? You cough when you drink liquids. ? You cough up partially digested food. Get help right away if: ? You cannot swallow your saliva. ? You have shortness of breath, a fever, or both. ? Your voice is hoarse and you have trouble swallowing. These symptoms may represent a serious problem that is an emergency. Do not wait to see if the symptoms will go away. Get medical help right away. Call your local emergency services (911 in the [place] Do not drive yourself to the hospital. Summary ? Dysphagia is trouble swallowing. This condition occurs when solids and liquids stick in a person's throa (more content not included)... Normal [facility] Coding Summary.on 04-08-2023 Coding Summary. CD:[id number] W w+PGhlYWQ+XK1BRUBiS06 xzNCldZ0yK0ZBCUsHInhj UNMBLHgEPzMacyGjNE1ug XNjZXJu IC8+MT9nOQUnMdlnsWTny 4E0cKE2G48ldn8vWVekkE O0UYYhClWdffoeh8yboPj 6IDcuNmluOyBt WJMatN72HNI9nX52Il17y DQhwQYbo5crhYy3ThHiVY FtXTE5uFmmOPmbc5VkHFV sC59ciBIgm0N3 XGBubUnniPVlBvGrsTV8x W5aONkjtyzpz7vfkqgnZc y7ek66aINpf7J3qJN5N2P fclK1IKNidUFr NadbkIBRlU9drmsmh9omg fztOfVjCOZcBPp3ZFn5AZ KniWctUaFmUZ71PMG1SIA mtgBmW6KeEGSt fEzmPrH0c4B4If6GS2UZI gzeP8HHFNIYAQadzET+PC 71sl26J4CpExbcBpm4HWD xAXE4pZF8dC4a WFEcGDtir0E8aRV8N7Vix uOwrp1kt1ryUZMlZJwgU1 3hnJZyd4T8ECWzxHR2WHR wuMegMcXcwB56 Oyc+ZYWotKlns7IhDguvq 9mqj0khyZf5FdbwYHSzcz FjuYnlOYW8j0PgZh2pYAQ eoRX4jIL4cC1l GmFjBjB1RFlkF945RqSae GGpLjpqC09kM4QooOM+PH XxYij2LVUqqTnfNR5tJ8S hZGRpbmctbGVm wPylZU0yEUXuufyvIIKsm Y7iATSnL8b4SyWkAnM4RO auB6WkXEVrxutiSg77gF7 iFrTqDrS5WAsw Y6WzjxC7ZANjsSWrDIdkN QP3A81ol1O5EUQbYOLrWB I0uCI7cN2xtGwdrocbxWG mdDsgdmVydGlj KWeuQPtgY409FZVptEqwQ kNvZGluZyBEYXRlOiAgMD UvMDkvMjAyMzwvdGQ+PHR pQWZ0aFwlBBVg xIPpQFerEk7mfYfhwQulY D3dRBKcecdhORLhdD8cQZ MwpLRgbNknEV7aWWOszbr sv740LrDbILQ1 XWHgcXAqR8HbeC4cHtZiT DVyXGHsF4YvzROwEMugZ3 55KGouBnW8YWTowsQgH8B sLWFsaWduOiB0 g8E0De7Ki2PyobheY3Kxe ZVuXfVoRvixJHx4N4MsLf wvdHI+UD92XTOnKN69BJb 1THB7gWetZSgm INZxH7LorU3lWbJfFVQgW GRkOyc+PHRhYmxlIHdpZH RoPScxMDAlJyBzdHlsZT0 cMt6kICQlOZQu xZxmtLOsRdWvx2mkMCCqH HtqBB4lqSreK3SzcDD6FU Oes7d1Uy72B13bB9MpbJR +JOOcfEB2mHG3 mY1rJjGxUaC3UIdaE319C rFgbOIvGokkj6kne6xhlW z5YlL4TOFxayKgeJcxABK 3x4AdMy49Q46b IHdpZHRoPSIxNSUiIHZhb Fwftm8vqJ9mLq7+PGNvbC L5aDO9dX4iNgHnRrI8UOs wN601UhUytVYd Gebqp3mxe0vfeQw6XbPrN SShmsWpbSooNHC4g9XyCk 46X8FwxKoni0AqRlb5na6 9zEBpl0L6qJY9 Q2HiOXVcxrxjcWSkaNboJ M4sLCXlbdvbBVSpsS5lIR TqD0r8McCkQmA5VTvpY5V ntdS3MDMdyREf QWQvmVJAbR5qzwpzs9ffc opeJbOpAAKuIHh5CXb0RF CpxAuyIsMqWCA6AdP3VDA 0lIGysM9ncDub czzmiG2hYvm+LJA3oJPfg UNQNT4nZvzbzZE+PHRkIH J0uEtfGMccKYXivN1lSRM gW7c4DdGbOoE1 CYjvO4WnnaL4PAVeoHZwJ KUygVZFiX9vvedyl5qckz ivFaXmURIbAAj4OIq2XMZ saWduOiBsZWZ0 EnD6UII2hGKulT4ykDlkd nlhxY4pFza+QmlydGggRG H5SUu0G5FgLeu0UXNufWo cLP7eyJVgAIfb Zy2spZwxzIdoAB5jHCAkb yxij942OoCce1nzSUXzsI FkLZlcULI4M88zd0R2MDI yLKEpEPG6dPA7 oA3uaZkjznidoILqpBzlb pFnjNstJGbdPFftR004MB LdnIvjJpUgIJt8I3UjBcz 7JQNcwJhtVZ8u cMFlVIulZi5aiEwmrXcxH W3sMHRxzdhyk815IwPbd7 koMNRpdVYzJSpaFGX8U52 ax2H2SGEgZEYr KIO3iTU3tN2tsQuhbxwef GVmdDsgdmVydGljYWwtYW txO484ZDJfhCqrYbGlvXz 5T1WtYcd4PEFv rVjcNL5dvTQgRNlkAn8gw YdmhEysJX6iDSAezrkdg6 46NeJtp7rkGJFjwSFsAJm fFVM5Q26rt7U1 OZJeWTBiGLM5yTB6gP2vg GlnbjogbGVmdDsgdmVydG rvGOtpADmjB289RFMclMs nPlBhdGllbnQg IPqvDNd7T4VwIlkmzKH+P N64FLXcRB41aEImwNXfk5 ainWq9KcVoHIYzGYS3cEq wHVbkd9MbMRNt G68syCGng3I8ATUztOcap ZWiPvYpeXP3aG1xPRepnf fsw2kxlgevXzmsw2ldyz8 3eA87B41zWVjy ZHRoPSIzMCUiIHZhbGlnb x2ufA9fRz2+UBKxrMP4mG W2rL1hFKEpIqS8ZLhjS31 9InRvcCIvPjxj a4cdn8ixuJe1JiF0VEXqn sNbcKgdQIV1g4IkZv43A4 9sIHdpZHRoPSIyMCUiIHZ abMqhoi8gpK9q Ii8+UQZlnYK4pWL8uH5eL hQbWtX0XUbcM844EjDlqZ PyNcbsY01gT3BadXW+PHR eOox3KVBruTlk FX9tnTImWPvoBb2tTXT2D yUdUdImTIvsP6RaGYJace dolllysMJ2UTWzUCDzaL0 0Rl0niVksYWDe cGSPfX1kdbftq4nlcbqpA iYoPAUkDQs3TBl4XNYlxX zzTnHhBLM6WgO4OOF0bIO spH7kkMuzpcfo oV2qC9IqOGOvcvziCx01x F5xPrLhKdJ7AEqfWdk+TU lDSEFMRUMsIFRZTEVSIEo 2Z3EgHyq0ROLg cKdmVQ4nyDJtWSasXb8mj RrtbZxfLX3qMELlzduvWI RojX8eKBWbuTJggIbvRH3 dYPOoxzjex625 IjOmIUV1CZUabXQtF0Vso N5uPhBfBGQfPZWfM3HbcI WxNWcoD910IAxySzX0SME zxhPpS7TdJCEq cAhiCxP2x6J8Ol9aYH5jY y4zKOUyUI60OK49dPRld7 F5cXS9S3UsSEItkcbwitg pdHK9IBSyMBHe hL66qFFhOVugOg0pc5H9g 932AYOoFUMbzE38Xf5pzD iuTTXhiDYHcD6phzclk4d vcjogIzAwMDAw UGk2JMp0XUDdgMvzLsSzQ KY5HoG4UXO7jCGalK6fqJ allzvvwS3uTaq+MjAgWWV loeW7L2UwJkn9 MOVkxTydUZ9vuXOcHSahX c9kfRizkXvjUV1vAPYnwn tsYDQlqM2iERIiqSVerIs jTD1gVOXjofds y003EhMwGEY0MRAibHEnH 4HocC1cLyDtNYGuUJMoY6 SinRAsNQvzD929CCiwZgV 9EKFvmdRhI6Vq XIYdjTmtHcE0r0U3Ok8SB CigIG37BU52eZJtr7L3pO K6G1JoXKVozbzsjdfoaWH 7CCOkNUTdhE12 kUAsSIfjIs8io6E7m446H ZLzQWQdcK18Cw2ejYpsTZ UcnEEYzN3lgzuyp5vuohq gIzAwMDAwMDt0 CHu5QUBkmUbbToCrOYS9B kR1DVK8eHKgoP3xtBapmw mndI2uShq+SC3iwcojxeJ 7DX70UM70C2Pz PjwvdGFibGU+PHRhYmxlI HdpZHRoPScxMDAlJyBzdH hmFB7vMm9kAJNtZADhyVy eiNOxDaExa4gd TACiAFtaUK7wbJikW7Xap LR4FNAlu6u2Rc44C85lK8 JvdXA+JCWxkPY7fTJ5dO7 jLhJrFnX1XRiy G680BjXqqGWaFxalj1ucb 6eptUd5AaBsFAGsecOptH qiLYW9z6JmLy17Z48vSEb pZHRoPSIyMCUi OAJfeBkzfa7toO9tHr8+P OSdhRY9eJU7jJ9zOsYrWw S5FGsnE867LnUabJVrBzk pR31mF2LzpTE+ KWYhYer3LISsfHakCA5ph INjDCliOl0aXMX9CiCbKj MnVApnV9KmKGUdjlwzagz zoUR0BNPeBTAn nA10Xr5wvIbkMg3hARPzM LE2OHVrxXXfS3AvzK4sBr CrUZBaGRHvQ2CupDJwIXi bU827VIliIzZ8 DTMkhmLwN1DmOTHhuNjnC eK7m7D0If9IsFtzmRPgBL 7xLrRbHCw5S5VsWst4CYY peNagLA9kgVZi PAieNc8chEptgFyfRI9xB UWndekfr426JeRej1bsTY VrqBEfAKwzLTL8S23ej8Z 4GZFlFMUcIWW8 bOI0xX3piNmrksprrXMto DsgdmVydGljYWwtYWxpZ2 91HMEjsQjeNmHIAkz0G4I rHaq9ZVWlvXzh KN1dsJKyXKaiOe5woJpfu VxqKP7xIIQpfiuiu784Cc Zqy6wkLSTcgSVvJOxlESW 9A50sb5J7TSRy PHPqGRE5dVY7hM3hyDoxs jogbGVmdDsgdmVydGljYW mfYQldG923VRIhmVngTh2 QVgv3T6XePov5 YAHowObaUY7jlJNtNWjgZ u7ozBlgeLxoEM2aWLWcci gda798TjZrv8wwGDZniVQ aPMowZGN2A12u r3X3WZPmKALzRCZ7rEP8q R0ngZbdgkoqyTUphEmxvq LciYumQVpoHGnoX976FIQ vcDsnPlBheWVy OjwvdGQ+CM10hq67J8NfH pzaQdi4VEUlRVZ7dTJ8xB 1iPCFzAVawn4L8tEJ8Z0V splYwlr1ow2xx YXBzZTog (more content not included)... Normal [facility] Consent for Treatmenton Consent for Treatment [id number]:127 Normal [facility] Discharge Instructionson Discharge Instructions [id number]:127 Normal [facility] ED Clinical Summaryon 2022 ED Clinical Summary [place] [id number] ED Clinical Summary Person Information Name: PACO EDMONDS [facility] Age: 18 Years : 2005 Sex: Male Language: Turkmen PCP: KASSIDY BELL, Vipul Villatoro Marital Status: Single Visit Id: Visit Reason: Throat pain - Adult; THROAT PAIN Speciality: Acuity: 3 Enc Type: Emergency Med Service: Emergency Arrival: 04/05/2023 22:09:51 Discharge: 04/05/2023 23:58:14 LOS: 000 01:49 Checkin: 04/05/2023 22:09:51 Checkout: 04/05/2023 23:58:14 Dispo Type: Home (Routine DC) EVENTS: Event Name Event Status Request Date/Time Start Date/Time Complete Date/Time Arrive Complete 04/05/2023 22:09:51 04/05/2023 22:09:51 04/05/2023 22:09:51 Document Home Meds Request 04/05/2023 22:09:51 Triage Complete 04/05/2023 22:09:51 04/05/2023 22:17:50 04/05/2023 22:17:50 Dr Exam Complete 04/05/2023 22:15:49 04/05/2023 22:15:49 04/05/2023 22:15:49 Registration Complete 04/05/2023 22:15:49 04/05/2023 22:18:03 04/05/2023 22:20:50 Dr Exam Complete 04/05/2023 22:16:46 04/05/2023 22:16:46 04/05/2023 22:16:46 Bed Assign Complete 04/05/2023 22:18:03 04/05/2023 22:18:03 04/05/2023 22:18:03 RN Exam Request 04/05/2023 22:18:03 Reg Complete Request 04/05/2023 22:20:50 Pending Labs Complete 04/05/2023 22:27:25 04/05/2023 23:13:20 Pending Labs Inlab 04/05/2023 23:13:20 04/05/2023 23:13:20 Discharge Complete 04/05/2023 23:49:35 04/05/2023 23:58:20 04/05/2023 23:58:20 Transfer Complete 04/05/2023 23:58:20 04/05/2023 23:58:20 04/05/2023 23:58:20 ADDRESS: [address] [facility] [id number] PHYS DOC NOTES: MEDICAL INFORMATION: Prescriptions Given: New Medications [id number], [address], [place] [id number], [phone] omeprazole (omeprazole 20 mg Cap-DR) 1 Capsules By Mouth every day for 14 Days. Refills: 0. Medications to Continue with No Changes Other Medications mupirocin topical (mupirocin topical 2% ointment) 1 Application Topical 3 times a day. Refills: 0. PATIENT EDUCATION INFORMATION: Instructions: Dysphagia Follow up: With: Address: When: Sunday MEDRAN[facility] [address] [place], [place] [id number] Business (1) In 3 days 04/08/2023 With: Address: When: Vipul YI [address] [place] [address] Business (1) In 3 days 04/08/2023 Comments: Call the office of your primary care doctor to arrange for follow-up within the above-stated timeframe. Follow-up with your primary care doctor about this ED visit. You should review your labs, imaging, and diagnoses from this ED visit with your primary care physician. If you were prescribed medications you should discuss possible side-effects and drug interactions with your pharmacist. Call 911 or go to the nearest Emergency Department if you develop any new or worsening symptoms. DIAGNOSIS: Dysphagia Normal [facility] ED Note-Nursingon 04-06-2023 ED Note-Nursing pt given d/c instructions and educated on importance of follow up. pt educated on new medication. pt verbalized understanding of instructions and readiness for d/c. pt walked self ambulatory to waiting room in stable condition. Normal [facility] ED Note-Nursing pt arrived to ed fro m home via private car with c/o sore throat and trouble swallowing for 1 week. VSS. pt denies any other complaints at this time. [facility] ED Note-Physicianon 04-06-20 ED Note-Physician Basic Information Time Seen: Dean Montgomery PA-C 04/05/2023 22:15 Chief Complaint complains of sore throat for the last week. denies fever or cough. states unable to eat. taking minimal fluids History of Present Illness Patient is a 18-year-old male who presents to the ED with complaint of difficulty swallowing. Patient reports that for several months now he has had a sensation that swallowed food is going down more slowly. Patient denies any pain. Patient denies any foreign body sensation. Patient denies any food coming back up. Patient reports that he feels his symptoms have especially been bad over the last week. Patient denies any fevers or chills. Patient has any cough, congestion, rhinorrhea, ear pain. Patient denies any known ill exposures. Patient reports swallowing difficulties are more acute with solid food. Patient reports that he feels like it is harder to swallow liquids, but that he is still getting adequate liquid intake. Patient denies any chest pain. Patient denies any abdominal pain. Patient denies any bowel changes. Patient denies any urinary symptoms. Patient denies any nausea or vomiting. Patient reports he does not take any medication regularly, reports being otherwise healthy. Patient denies any history of acid reflux. Review of Systems Full 10 system ROS performed. Pt denies symptoms except as noted above in the HPI. Physical Exam Vitals & Measurements T: 36.7 ?C(Oral) HR: 72(Peripheral) RR: 16 BP: 126/61 SpO2: 100% HT: 180 cm WT: 50.7 kg BMI: 15.65 VITALS: I have reviewed the triage vital signs. GENERAL: Well developed, well appearing adult in no acute distress. NEURO: Alert and oriented. Moves all extremities. Face is symmetric and expressive. EYES: PERRL. No scleral icterus or conjunctival injection. No discharge. HENT: Normocephalic, atraumatic. Hearing is grossly intact. Nares grossly patent and without discharge. Mucous membranes moist. No oropharyngeal redness, no tonsillar enlargement or exudates. NECK: No JVD. Patient moves neck without restriction. CARDIO: Rhythm regular. Normal rate. No murmur, rub, or gallop. Pulses equal bilaterally in the upper and lower extremity. No lower extremity edema. PULM: Lungs clear to auscultation in all leger. No wheezes, rales, or rhonchi. No conversational dyspnea. No splinting, stridor, or accessory muscle use. GI/: Abdomen is soft and non-tender. Normoactive bowel sounds. EXTREMITIES: Symmetric muscle bulk. No joint swelling. No clubbing, cyanosis, or deformity. SKIN: Warm and dry. Normal turgor. No rash or lesions appreciated. PSYCH: Mood, affect, and interaction is appropriate to the setting. Medical Decision Making Number and Complexity of Problems Differential Diagnosis: [] [facility] Data External documents reviewed: Not applicable My EKG interpretation: Not applicable My CT interpretation: Not applicable My X-ray interpretation: Not applicable My Ultrasound interpretation: Not applicable Decision rules/scores evaluated: Not applicable Discussed with: Not applicable Treatment and Disposition ED Course: Patient presents to ED for evaluation of difficulty swallowing. Patient denies any odynophagia. Patient denies any vomiting or food coming back up. Patient denies any significant weight loss. Patient denies any sensation of choking or difficulty breathing. Patient reports his symptoms been worse over the last week, denies any other systemic infectious symptoms. Rapid strep was performed in the ED after being ordered in triage which was negative. Given patient age, my suspicion is that symptoms may possibly be related to an undiagnosed acid reflux. I did give patient a PPI prescription to trial. I believe an appropriate neck step for patient would be follow-up with GI for evaluation. Patient with stable vital signs, well-appearing in the ED. Patient without any findings on physical examination. Patient does endorse that he is still able to swallow liquids and food, he just must do so more slowly. I did discuss return precautions with the patient. Patient questions answered. Patient discharged home. Shared decision making: As above Code status: Not addressed during this visit Assessment/Plan Dysphagia (R13.10: Dysphagia, unspecified) Orders: omeprazole, 20 mg = 1 cap(s), Oral, Daily, X 14 day(s), # 14 cap(s), Refills(s) 0, Pharmacy: [id number], 180, cm, 04/05/23 22:17:00 EDT, Height/Length Dosing, 50.7, kg, 04/05/23 22:17:00 EDT, Weight Dosing Disposition Plan Patient Discharge Condition Stable Discharge Disposition To home Discharge Prescription List Prescriptions omeprazole 20 mg Cap-DR, 20 mg= 1 cap(s), Oral, Daily Follow-up With When Contact Information Sunday MED[facility] In 3 days 04/08/[address] [place] [address] Business (1) Additional Instructions: Vipul YI In 3 days 04/08/[address] [place] [address]- Business (1) Additional Ins (more content not included)... Normal [facility] Comment on above: Result Comment: Elec tronically Signed By: Dean Montgomery PA-C\.br\Date and Time Signed: 04/06/23 00:04 EDT\.br\Electronically Co-Signed By: Daniela Stevens DO\.br\Date and Time Co-Signed: 04/06/23 04:20 EDT ED Patient Education Noteon 04-06-2023 ED Patient Education Note ENT Dysphagia Dysphagia is trouble swallowing. This condition occurs when solids and liquids stick in a person's throat on the way down to the stomach, or when food takes longer to get to the stomach than usual. You may have problems swallowing food, liquids, or both. You may also have pain while trying to swallow. It may take you more time and effort to swallow something. What are the causes? This condition may be caused by: ? Muscle problems. These may make it difficult for you to move food and liquids through the esophagus, which is the tube that connects your mouth to your stomach. ? Blockages. You may have ulcers, scar tissue, or inflammation that blocks the normal passage of food and liquids. Causes of these problems include: ? Acid reflux from your stomach into your esophagus (gastroesophageal reflux). ? Infections. ? Radiation treatment for cancer. ? Medicines taken without enough fluids to wash them down into your stomach. ? Stroke. This can affect the nerves and make it difficult to swallow. ? Nerve problems. These prevent signals from being sent to the muscles of your esophagus to squeeze (contract) and move what you swallow down to your stomach. ? Globus pharyngeus. This is a common problem that involves a feeling like something is stuck in your throat or a sense of trouble with swallowing, even though nothing is wrong with the swallowing passages. ? Certain conditions, such as cerebral palsy or Parkinson's disease. What are the signs or symptoms? Common symptoms of this condition include: ? A feeling that solids or liquids are stuck in your throat on the way down to the stomach. ? Pain while swallowing. ? Coughing or gagging while trying to swallow. Other symptoms include: ? Food moving back from your stomach to your mouth (regurgitation). ? Noises coming from your throat. ? Chest discomfort when swallowing. ? A feeling of fullness when swallowing. ? Drooling, especially when the throat is blocked. ? Heartburn. How is this diagnosed? This condition may be diagnosed by: ? Barium swallow X-ray. In this test, you will swallow a white liquid that sticks to the inside of your esophagus. X-ray images are then taken. ? Endoscopy. In this test, a flexible telescope is inserted down your throat to look at your esophagus and your stomach. ? CT scans or an MRI. How is this treated? Treatment for dysphagia depends on the cause of this condition: ? If the dysphagia is caused by acid reflux or infection, medicines may be used. These may include antibiotics or heartburn medicines. ? If the dysphagia is caused by problems with the muscles, swallowing therapy may be used to help you strengthen your swallowing muscles. You may have to do specific exercises to strengthen the muscles or stretch them. ? If the dysphagia is caused by a blockage or mass, procedures to remove the blockage may be done. You may need surgery and a feeding tube. You may need to make diet changes. Ask your health care provider for specific instructions. Follow these instructions at home: Medicines ? Take boif-zic-wnjgxky and prescription medicines only as told by your health care provider. ? If you were prescribed an antibiotic medicine, take it as told by your health care provider. Do not stop taking the antibiotic even if you start to feel better. Eating and drinking ? Make any diet changes as told by your health care provider. ? Work with a diet and community nutrition educator (dietitian) to create an eating plan that will help you get the nutrients you need in order to stay healthy. ? Eat soft foods that are easier to swallow. ? Cut your food into small pieces and eat slowly. Take small bites. ? Eat and drink only when you are sitting upright. ? Do not drink alcohol or caffeine. If you need help quitting, ask your health care provider. General instructions ? Check your weight every day to make sure you are not losing weight. ? Do not use any products that contain nicotine or tobacco. These products include cigarettes, chewing tobacco, and vaping devices, such as e-cigarettes. If you need help quitting, ask your health care provider. ? Keep all follow-up visits. This is important. Contact a health care provider if: ? You lose weight because you cannot swallow. ? You cough when you drink liquids. ? You cough up partially digested food. Get help right away if: ? You cannot swallow your saliva. ? You have shortness of breath, a fever, or both. ? Your voice is hoarse and you have trouble swallowing. These symptoms may represent a serious problem that is an emergency. Do not wait to see if the symptoms will go away. Get medical help right away. Call your local emergency services (911 in the [place] Do not drive yourself to the hospital. Summary ? Dysphagia is trouble swallowing. This condition occurs when solids and liquids stick in a person's throa (more content not included)... Normal [facility] ED Patient Summaryon 023 ED Patient Summary [place] [id number] Patient Discharge Instructions Person Information Name: PACO EDMONDS Age: 18 Years Arrival Date: 04/05/2023 22:09:51 Discharge Diagnosis: Dysphagia Primary Care Physician: Vipul YI MD Provider Information Primary Provider: Daniela Stevens DO Advanced Wire Stripping Machine Operator:Dean Montgomery PA-C The exam and treatment you received in the Emergency Department were for an urgent problem and are not intended as complete care. It is important that you follow up with a doctor, nurse practitioner, or physician?s payroll assistant for ongoing care. If your symptoms become worse or you do not improve as expected and you are unable to reach your usual health care provider, you should return to the Emergency Department. We are available 24 hours a day. PACO EDMONDS has been given the following list of patient education materials, prescriptions and follow-up instructions: Follow-up Instructions: With: Address: When: Sunday [employer] [address] [place], [place] [id number] Business (1) In 3 days 04/08/2023 With: Address: When: Vipul YI [address] [place] [id number] Business (1) In 3 days 04/08/2023 Comments: Call the office of your primary care doctor to arrange for follow-up within the above-stated timeframe. Follow-up with your primary care doctor about this ED visit. You should review your labs, imaging, and diagnoses from this ED visit with your primary care physician. If you were prescribed medications you should discuss possible side-effects and drug interactions with your pharmacist. Call 911 or go to the nearest Emergency Department if you develop any new or worsening symptoms. In the event that this physician does not participate in your insurance network, please consult with your insurance company to find a nearby participating provider. Patient Education Materials: Dysphagia A MESSAGE TO ALL PATIENTS REGARDING OPIOIDS PRESCRIPTION OPIOIDS: WHAT YOU NEED TO KNOW Prescription opioids can be used to help relieve bcrzvdcy-pg-eqqzqc pain and are often prescribed following a surgery or injury, or for certain health conditions. These medications can be an important part of the treatment but also come with serious risks. It is important to work with your healthcare provider to make sure you are getting the safest, most effective care. WHAT ARE THE RISKS AND SIDE EFFECTS OF OPIOID USE? Prescription opioids carry serious risks of addiction and overdose, especially with prolonged use. An opioid overdose, often marked by slowed breathing, can cause sudden . The use of prescription opioids can have a number of side effects as well, even when taken as directed: ? Tolerance?meaning you might need to take more of the medication for the same pain relief ? Physical dependence?meaning you have symptoms of withdrawal when a medication is stopped ? Increased sensitivity to pain ? Constipation ? Nausea, vomiting, and dry mouth ? Sleepiness and dizziness ? Confusion ? Depression ? Low levels of testosterone that can result in lower sex drive, energy, and strength ? Itching and sweating RISKS ARE GREATER WITH: ? History of drug misuse, substance use disorder, or overdose ? Mental health conditions (such as depression or anxiety) ? Sleep apnea ? Older age (65 years and older) ? Avoid alcohol while taking prescription opioids. Also, unless specifically advised by your health care provider, medications to avoid include: ? Benzodiazepines (such as Xanax or Valium) ? Muscle relaxants (such as Soma or Flexeril) ? Hypnotics (such as Ambien or Lunesta) ? Other prescription opioids KNOW YOUR OPTIONS Talk to your health care provider about ways to manage your pain that don?t involve prescription opioids. Some of these options may actually work better and have fewer risks and side effects. Options may include: ? Pain relievers such as acetaminophen, ibuprofen, and naproxen ? Some medication that are also used for depression or seizures ? Physical therapy and exercise ? Cognitive behavioral therapy, a psychological, goal-directed approach, in which patients learn how to modify physical, behavioral, and emotional triggers of pain and stress. IF YOU ARE PRESCRIBED OPIOIDS FOR PAIN: ? Never take opioids in greater amounts or more often than prescribed. ? Follow up with your primary health care provider. o Work together to create a plan on how to manage your pain. o Talk about ways to help manage your pain that don?t involve prescription opioids. o Talk about any and all concerns and side effects. ? Help prevent misuse and abuse o Never sell or share prescription opioids. o Never use another person?s prescription opioids. ? Store prescription opioids in a secure place an (more content not included)... [facility] Grp A Strp PCRon 04-06-2023 Group A Strep Negative Normal [facility] Comment on above: Order Comment: Order Added on by Discern Rule. Result Comment: Test ing performed using DNA amplification. Performed By: #### 1 [id number] ####[facility] [address] [place] [address] Grp A Strp Intrl Ctrl Pass Normal Fis her [facility] Comment on above: Order Comment: Order Added on by Discern Rule. Performed By: #### 1 [id number] ####[facility] [address] [place] [address] Rapid Strep w/rfxon 04-06-20 23 S. pyogenes Ag IA.rapid Ql (Throat) Negative Normal Negative [facility] Comment on above: Performed By: #### 1 [id number] ####[place] [id number] [place] [address] XR CHEST 1 Von 11-05-2022 XR CHEST 1 V EXAM: XR CHEST 1 V 11/05/2022 2:11 AM EST [place]001 CLINICAL STATEMENT: CHEST PAIN, UNSPECIFIED COMPARISON: No prior studies are available at the time of dictation. TECHNIQUE: Single AP radiograph of the chest is submitted. FINDINGS: There is hyperinflation. No acute airspace disease. The cardiac silhouette is normal. The costophrenic recesses are sharp. No pneumothorax. The bony elements are unremarkable. IMPRESSION: Hyperinflation. No acute airspace disease. FOLLOW-UP: Follow-up as clinically indicated. Electronically authenticated by: SHANNON SAID Date: 2022-11-05 02:51 Normal [facility] XR NECK SOFT TISSUEon 2021 XR NECK SOFT TISSUE EXAM: XR NECK SOFT TISSUE HISTORY: CHEST PAIN, UNSPECIFIED COMPARISON: Chest radiograph 11/05/2022 TECHNIQUE: 2 views of the soft tissues of the neck FINDINGS: Visualized aerodigestive tract is unremarkable. The epiglottis and aryepiglottic folds are unremarkable. No increase in the prevertebral soft tissues. No radiopaque foreign body is seen. No acute osseous abnormality is identified. The lung apices are clear. IMPRESSION: No acute abnormality. No radiopaque foreign body. Electronically authenticated by: JEANNA MARTI Date: 2022-11-05 03:01 Normal [facility] Ambulatory Visit Summaryon 0 06-19-2022 Ambulatory Visit Summary PACO EDMONDS :2005 Visit Date:05/27/2022 Ambulatory Visit Instructions Your Diagnosis Puncture wound of finger of left hand Right shoulder pain Your Care Team Attending Physician - Mellissa HERRERA Primary Care Physician - Vipul YI MD This Is Your Medications List mupirocin topical (mupirocin topical 2% ointment) Procedures Performed Dental surgery service (01/19/2020), Laparoscopic appendectomy (11/27/2018). What to do next You Need to Schedule the Following Appointments Follow Up with [facility] When: In 1 week Comments: For a recheck of finger and right shoulder Where: You Need to Complete the Following XR Shoulder Complete Right, 05/27/22, Routine, Order for future visit, Transport Mode: Bed, Reason: Pain, Traumatic, No, Right shoulder pain, pp_set_radiology_subs pecialty, [facility] Medications What How Much When Why Instructions New mupirocin topical (mupirocin topical 2% ointment) 1 Application Topical 3 times a day Puncture wound of finger of left hand Pickup at [id number] Pharmacy Information [id number]: [address], [place] [id number] [phone] Allergies Phenergan (HIVES) Problems Ongoing - Any problem that you are currently receiving treatment for. Acute costochondritis Acute pharyngitis Acute pharyngitis Exposure to COVID-19 virus Insomnia Outbursts of anger Puncture wound of finger of left hand Right shoulder pain Smoker Underweight in childhood with BMI < 5th percentile Upper respiratory infection Well child check Historical - Any problem that you are no longer receiving treatment for. Acute upper respiratory infection Education Materials Shoulder Pain Many things can cause shoulder pain, including: ? An injury to the shoulder. ? Overuse of the shoulder. ? Arthritis. The source of the pain can be: ? Inflammation. ? An injury to the shoulder joint. ? An injury to a tendon, ligament, or bone. Follow these instructions at home: Pay attention to changes in your symptoms. Let your health care provider know about them. Follow these instructions to relieve your pain. If you have a sling: ? Wear the sling as told by your health care provider. Remove it only as told by your health care provider. ? Loosen the sling if your fingers tingle, become numb, or turn cold and blue. ? Keep the sling clean. ? If the sling is not waterproof: ? Do not let it get wet. Remove it to shower or bathe. ? Move your arm as little as possible, but keep your hand moving to prevent swelling. Managing pain, stiffness, and swelling ? If directed, put ice on the painful area: ? Put ice in a plastic bag. ? Place a towel between your skin and the bag. ? Leave the ice on for 20 minutes, 2?3 times per day. Stop applying ice if it does not help with the pain. ? Squeeze a soft ball or a foam pad as much as possible. This helps to keep the shoulder from swelling. It also helps to strengthen the arm. General instructions ? Take csjd-hrc-aieamre and prescription medicines only as told by your health care provider. ? Keep all follow-up visits as told by your health care provider. This is important. Contact a health care provider if: ? Your pain gets worse. ? Your pain is not relieved with medicines. ? New pain develops in your arm, hand, or fingers. Get help right away if: ? Your arm, hand, or fingers: ? Tingle. ? Become numb. ? Become swollen. ? Become painful. ? Turn white or blue. Summary ? Shoulder pain can be caused by an injury, overuse, or arthritis. ? Pay attention to changes in your symptoms. Let your health care provider know about them. ? This condition may be treated with a sling, ice, and pain medicines. ? Contact your health care provider if the pain gets worse or new pain develops. Get help right away if your arm, hand, or fingers tingle or become numb, swollen, or painful. ? Keep all follow-up visits as told by your health care provider. This is important. This information is not intended to replace advice given to you by your health care provider. Make sure you discuss any questions you have with your health care provider. Document Released: 08/27/2006 Document Revised: 06/01/2019 Document Reviewed: 06/01/2019 [employer] Patient Education ? 2020 [employer]. Puncture Wound A puncture wound is an injury that is caused by a sharp, thin object that goes through (penetrates) your skin. Usually, a puncture wound does not leave a large opening in your skin, so it may not bleed a lot. However, when you get a puncture wound, dirt or other materials (foreign bodies) can be forced into your wound and can break off inside. This increases the chance of infection, such as tetanus. There are many sharp, pointed objects that can cause puncture wounds, including teeth, n (more content not included)... Normal [facility] Patient Educationon 05-27-20 Patient Education Dermatology Puncture Wound A puncture wound is an injury that is caused by a sharp, thin object that goes through (penetrates) your skin. Usually, a puncture wound does not leave a large opening in your skin, so it may not bleed a lot. However, when you get a puncture wound, dirt or other materials (foreign bodies) can be forced into your wound and can break off inside. This increases the chance of infection, such as tetanus. There are many sharp, pointed objects that can cause puncture wounds, including teeth, nails, splinters of glass, fishhooks, and needles. Treatment may include washing out the wound with a germ-free (sterile) salt-water solution, having the wound opened surgically to remove a foreign object, closing the wound with stitches (sutures), and covering the wound with antibiotic ointment and a bandage (dressing). Depending on what caused the injury, you may also need a tetanus shot or a rabies shot. Follow these instructions at home: Medicines ? Take or apply afgn-qkj-dkovpzh and prescription medicines only as told by your health care provider. ? If you were prescribed an antibiotic medicine, take or apply it as told by your health care provider. Do not stop using the antibiotic even if your condition improves. Bathing ? Keep the dressing dry as told by your health care provider. ? Do not take baths, swim, or use a hot tub until your health care provider approves. Ask your health care provider if you may take showers. You may only be allowed to take sponge baths. Wound care ? There are many ways to close and cover a wound. For example, a wound can be closed with sutures, skin glue, or adhesive strips. Follow instructions from your health care provider about how to take care of your wound. Make sure you: ? Wash your hands with soap and water before and after you change your dressing. If soap and water are not available, use hand escort blind. ? Change your dressing as told by your health care provider. ? Leave sutures, skin glue, or adhesive strips in place. These skin closures may need to stay in place for 2 weeks or longer. If adhesive strip edges start to loosen and curl up, you may trim the loose edges. Do not remove adhesive strips completely unless your health care provider tells you to do that. ? Clean the wound as told by your health care provider. ? Do not scratch or pick at the wound. ? Check your wound every day for signs of infection. Check for: ? Redness, swelling, or pain. ? Fluid or blood. ? Warmth. ? Pus or a bad smell. General instructions ? Raise (elevate) the injured area above the level of your heart while you are sitting or lying down. ? If your puncture wound is in your foot, ask your health care provider if you need to avoid putting weight on your foot and for how long. Do not use the injured limb to support your body weight until your health care provider says that you can. Use crutches as told by your health care provider. ? Keep all follow-up visits as told by your health care provider. This is important. Contact a health care provider if: ? You received a tetanus shot and you have swelling, severe pain, redness, or bleeding at the injection site. ? You have a fever. ? Your sutures come out. ? You notice a bad smell coming from your wound or your dressing. ? You notice something coming out of your wound, such as wood or glass. ? Your pain is not controlled with medicine. ? You have increased redness, swelling, or pain at the site of your wound. ? You have fluid, blood, or pus coming from your wound. ? You notice a change in the color of your skin near your wound. ? You need to change the dressing frequently due to fluid, blood, or pus draining from your wound. ? You develop a new rash. ? You develop numbness around your wound. ? You have warmth around your wound. Get help right away if: ? You develop severe swelling around your wound. ? Your pain suddenly increases and is severe. ? You develop painful skin lumps. ? You have a red streak going away from your wound. ? The wound is on your hand or foot and you: ? Cannot properly move a finger or toe. ? Notice that your fingers or toes look pale or bluish. Summary ? A puncture wound is an injury that is caused by a sharp, thin object that goes through (penetrates) your skin. ? Treatment may include washing out the wound, having the wound opened surgically to remove a foreign object, closing the wound with stitches (sutures), and covering the wound with antibiotic ointment and a bandage (dressing). ? Follow instructions from your health care provider about how to take care of your wound. ? Contact a health care provider if you have increased redness, swelling, or pain at the site of your wound. ? Keep all follow-up visits as told by your health care provider. This is important. This information is not intended to replace advice given to you by your health care provider. Make sure (more content not included)... Normal [facility] Pediatrics Office/Clinic Not gonzalo 05-27-2022 Pediatrics Office/Clinic Note Chief Complaint patient is here today for lt. pinky finger nail wound and now having fever he believes he is burning up and here by himself today History of Present Illness Paco Edmonds is a 17-year-old male who presents to the office today by himself for a wound to his hand. Paco states he was pulling old wood from the basement and he poked himself in the left fifth finger with a judith nail that caused him to bleed. This happened yesterday around noon. He states that this morning he felt like he was burning up; however, he did go to work. He can not remember when his last tetanus shot was. He states that he is up to date on his other vaccines. He believes that his tetanus shot was around the age of 11. Previous to living in [place], he has lived in [place]; however, he has not been able to get his records from there. We have seen him for the past 3 years in our system and I do not see a record of his tetanus shot that we have given him. He further denies any cold symptoms such as nasal congestion, rhinorrhea, cough, ear pain, or throat pain. He has not had any vomiting, diarrhea, or nausea. In addition, he states that his right shoulder hurts him when he moves his arm from right to left. 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 He felt a pop recently in the right shoulder while lifting an impact gun that he states is about 8 pounds. He states that he has previously injured this a couple of years ago when he fell and had to have an x-ray at that time and then wore a brace on it for a time. Review of Systems CONSTITUTIONAL: Negative for growth problems, fatigue, unexplained fevers, and weight loss. EYES: Negative for vision problems or eye drainage E/N/T: Negative for apparent hearing deficits, chronic nasal congestion, dental problems, and speech problems. RESPIRATORY: Negative for chronic cough, dyspnea, exposure to tuberculosis, and wheezing GASTROINTESTINAL: Negative for abdominal pain, constipation, diarrhea, feeding/nutritional problems, and vomiting. INTEGUMENTARY: Positive for puncture wound. NEUROLOGICAL: Negative for headaches MUSCULOSKELETAL: Positive for right shoulder pain. Physical Exam Vitals & Measurements T: 37.0 ?C(Temporal Artery) HR: 82(Peripheral) RR: 12 BP: 122/30 HT: 177.2 cm HT: 177.25 cm WT: 51.8 kg WT: 51.8 kg BMI: 16.49 General: The patient is well developed, well-nourished, in no apparent distress. Hydration status: On examination, the patient's hydration status was judged to be normal. Neck: supple with normal range of motion E/N/T: Normal external ears and nose; External ear canals both are normal Ears TM's right normal, left normal; Nasal Septum/Mucosa: normal nares and mucosa: Lips, teeth and Gums: normal; Oropharynx: normal mucosa, palate, and posterior pharynx: Tonsils: normal LYMPHATIC: No enlargement of anterior cervical nodes; no axillary adenopathy; no inguinal adenopathy; Respiratory: Normal respiratory rate and pattern with no distress; normal breath sounds with no rales, rhonchi, wheezes or rubs: Cardiovascular: Normal rate and rhythm without murmurs; normal S1 and S2 heart sounds with no S3, S4, rubs, or clicks: Neurologic: Normal for age Integumentary: It reveals a small puncture wound to the right pinky. It has just a small amount of erythema around it; however, there is no linear streaking or swelling of the finger. He does have slight tenderness upon palpation of the puncture wound of the left finger. Musculoskeletal: Right shoulder, he does have pain with raising his right arm towards his head. A popping sound was heard with this movement as well. The patient complained of pain with that. However, other range of motion is normal. He is able to take off his coat without trouble. No pain with palpation. No redness to the right shoulder, or bruising. Assessment/Plan 1. Puncture wound of finger of left hand (S61.239A: Puncture wound without foreign body of unspecified finger without damage to nail, initial encounter) I have prescribed mupirocin ointment 3 times a day for the next week.He is to call if the redness increases, or if the pain increases or if fever develops. I have also discussed him needing a tetanus booster as well today, as he thinks he has not had this since he was much younger and our records for the last 3-5 years while he has been living in [place] do not show a Tdap; however, we can not do it in our office located in [place], so he is agreeable to go to [place] office today and have that done right after this appointment. Ordered: mupirocin topical, 1 kenny, Topical, TID, 30 gram, Refill(s) 0, [id number], 177.2, cm, 05/27/22 9:52:00 EDT, Height/Length Dosing, 51.8, kg, 05/27/22 9:52:00 EDT, Weight Dosing 2. Right shoulder pain (M25.511: Pain in right shoulder) I have ordered a right shoulder x-ray. I have explained to him that he may take ibuprofen up to 3 times a day as needed for (more content not included)... Normal [facility] CHLAMYDIA/GONOCOCCUS ALMAZ (SW AB/URINE/PAPon 05-02-2022 Chlamydia trachomatis, ALMAZ Indeterminate Normal Negative [facility] Comment on above: Result Comment: The initial result for this specimen was a weak positive, but a repeat test was negative, with a final interpretation of indeterminate. The CDC suggests clinicians consider treating for presumptive infection or obtain a second specimen for repeat testing, depending on such factors as individual risk and local population prevalence. Performed By: #### C T/NGNA #### [facility] [address] [place] [address] Dr. Freddy Rodriguez Neisseria gonorrhoeae, ALMAZ Negative Normal Negative [facility] Comment on above: Performed By: #### C T/NGNA #### [facility] [address] [place] [address] Dr. Freddy Rodriguez CULTURE URINEon 04-28-2022 CULTURE URINE Culture Observations : No growth Normal [facility] Comment on above: Performed By: #### U RCX #### [facility] [address] [place] [address] Dr. Freddy Rodriguez ER URINE PROFILEon Bilirubin Ql (U) Negative Normal NEGATIVE [facility] Comment on above: Performed By: #### U MICRO, ERUR #### [facility] [address] [place] [address] Dr. Freddy Rodriguez Clarity (U) SL CLOUDY Abnormal CLEAR [facility] Comment on above: Performed By: #### U MICRO, ERUR #### [facility] [address] [place] [address] Dr. Freddy Rodriguez Color (U) LT. YELLOW Normal YELLOW [facility] Comment on above: Performed By: #### U MICRO, ERUR #### [facility] [address] [place] [address] Dr. Freddy Rodriguez ERUAHD A micrscopic examination will be performed if indicated. Normal [facility] Comment on above: Performed By: #### U MICRO, ERUR #### [facility] [address] [place] [address] Dr. Freddy Rodriguez Glucose Ql (U) Negative Normal NEGATIVE The [facility] Comment on above: Performed By: #### U MICRO, ERUR #### [facility] [address] [place] [address] Dr. Freddy Rodriguez Hemoglobin Ql (U) MODERATE Abnormal NEGATIVE The [facility] Comment on above: Performed By: #### U MICRO, ERUR #### [facility] [address] [place] [address] Dr. Freddy Rodriguez Ketones Ql (U) Negative Normal NEGATIVE The [facility] Comment on above: Performed By: #### U MICRO, ERUR #### [facility] [address] [place] [address] Dr. Freddy Rodriguez LEUKOCYTES SMALL Abnormal NEGATIVE [facility] Comment on above: Performed By: #### U MICRO, ERUR #### [facility] [address] [place] [address] Dr. Freddy Rodriguez Nitrite Ql (U) Negative Normal NEGATIVE The [facility] Comment on above: Performed By: #### U MICRO, ERUR #### [facility] [address] [place] [address] Dr. Freddy Rodriguez pH (U) 5.5 [pH] Normal 5-9 [facility] Comment on above: Performed By: #### U MICRO, ERUR #### [facility] [address] [place] [address] Dr. Freddy Rodriguez Protein (U) [Mass/Vol] 30 mg/dL Abnormal NEGATIVE/ TRACE [facility] Comment on above: Performed By: #### U MICRO, ERUR #### [facility] [address] [place] [address] Dr. Freddy Rodriguez SPEC GRAVITY >=1.030 Abnormal 1.005-<=1.02 5 [facility] Comment on above: Performed By: #### U MICRO, ERUR #### [facility] [address] [place] [address] Dr. Freddy Rodriguez UR MICRO IND INDICATED Normal [facility] Comment on above: Performed By: #### U MICRO, ERUR #### [facility] [address] [place] [address] Dr. Freddy Rodriguez Urobilinogen Qn (U) 0.2 {Courtney'U}/dL Normal 0.2 - 1. 0 [facility] Comment on above: Performed By: #### U MICRO, ERUR #### [facility] [address] [place] [address] Dr. Freddy Rodriguez URINE MICROSCOPIC ONLYon BACTERIA TRACE Abnormal NONE SEEN [facility] Comment on above: Performed By: #### U MICRO, ERUR #### [facility] [address] [place] [address] Dr. Freddy Rodriguez Bacteria identified Cx Nom (U) CX ALREADY ORDERED Normal [facility] Comment on above: Performed By: #### U MICRO, ERUR #### [facility] [address] [place] [address] Dr. Freddy Rodriguez CAST NONE SEEN Normal NONE SEEN [facility] Comment on above: Performed By: #### U MICRO, ERUR #### [facility] [address] [place] [address] Dr. Freddy Rodriguez Crystals LM Nom (Urine sed) NONE SEEN Normal NONE SEEN [facility] Comment on above: Performed By: #### U MICRO, ERUR #### [facility] [address] [place] [address] Dr. Freddy Rodriguez Epithelial cells LM Ql (Urine sed) NONE SEEN Normal NONE SEEN /RARE [facility] Comment on above: Performed By: #### U MICRO, ERUR #### [facility] [address] [place] [address] Dr. Freddy Rodriguez MUCOUS NONE SEEN Normal NONE SEEN [facility] Comment on above: Performed By: #### U MICRO, ERUR #### [facility] [address] [place] [address] Dr. Freddy Rodriguez RBC 0-2 Normal 0-2 [facility] Comment on above: Performed By: #### U MICRO, ERUR #### [facility] [address] [place] [address] Dr. Freddy Rodriguez WBC 75-100 Abnormal NONE SEEN [facility] Comment on above: Performed By: #### U MICRO, ERUR #### [facility] [address] [place] [address] Dr. Freddy Rodriguez URINALYSISOrdered By: Froilan santana on 04-22-2022 Bilirubin Ql (U) Negative (04/22/22 11:40 AM) Normal Negative [facility] UA Auto SS Clarity (U) Clear (04/22/22 11:40 AM) Normal Clear [facility] UA Auto SS Color (U) Yellow (04/22/22 11:40 AM) Normal Yellow [facility] UA Auto SS Epithelial cells.squamous LM.HPF (Urine sed) [#/Area] 0-2 /HPF Normal 0-2/HPF [facility] UA Aut o SS Glucose Test strip (U) [Mass/Vol] Negative (04/22/22 11:40 AM) Normal Negative [facility] UA Auto SS Hemoglobin Ql (U) Negative (04/22/22 11:40 AM) Normal Negative [facility] UA Auto SS Ketones (U) [Mass/Vol] Negative (04/22/22 11:40 AM) Normal Negative [facility] UA Auto SS [facility].plasma/Lithiu m.RBC (Bld) [Mass ratio] 0-3 /HPF Normal 0-3/HPF [facility] UA Auto SS Nitrite Ql (U) Negative (04/22/22 11:40 AM) Normal Negative [facility] UA Auto SS pH (U) 7.0 *NA* (04/22/22 11:40 AM) Invalid Interpretation Code 5.0 - 9.0 [facility] UA Auto SS Protein (U) [Mass/Vol] Negative (04/22/22 11:40 AM) Normal Negative [facility] UA Auto SS Specific gravity (U) [Rel density] 1.020 *NA* (04/22/22 11:40 AM) Invalid Interpretation Code 1.005 - 1.030 [facility] UA Auto SS UA Spec Desc Clean Catch (04/22/22 11:40 AM) Normal [facility] UA Auto SS Urobilinogen Qn (U) 0.4294744 {Courtney'U}/dL Normal 0.0 - 1.0 EU/dL [facility] UA Auto SS WBC Auto Ql (U) Trace *ABN* (04/22/22 11:40 AM) Invalid Interpretation Code Negative [facility] UA Auto SS WBC LM.HPF (Urine sed) [#/Area] 6-15 /HPF Invalid Interpretation Code 0-5/HPF [facility] UA Auto SS Vital Signs Date Time Vital Sign Value Performing Clinician Facility 05-21-2023 08:04-0400 Diastolic blood pressure 85 mm[Hg] Sunday MEDRANO [facility] 05-21-2023 08:04-0400 Mean blood pressure 101 mm[Hg] Brand SALAM [facility] 05-21-2023 08:04-0400 Systolic blood pressure 134 mm[Hg] Brand SALAM [facility] 05-21-2023 08:01-0400 Blood Pressure Location Brand SALAM [facility] 05-21-2023 08:01-0400 Diastolic blood pressure 78 mm[Hg] Brand SALAM [facility] 05-21-2023 08:01-0400 Heart rate 77 /min Brand SALAM [facility] 05-21-2023 08:01-0400 Respiratory rate 16 /min Brand SALAM [facility] 05-21-2023 08:01-0400 SaO2% (BldA) [Mass fraction] 98 % Brand SALAM [facility] 05-21-2023 08:01-0400 Systolic blood pressure 119 mm[Hg] Brand SALAM [facility] 04-11-2023 12:55-0400 Diastolic blood pressure 72 mm[Hg] Brand SALAM [facility] 04-11-2023 12:55-0400 Heart rate 56 /min Brand SALAM [facility] 04-11-2023 12:55-0400 Mean blood pressure 89 mm[Hg] Brand SALAM [facility] 04-11-2023 12:55-0400 Respiratory rate 18 /min Brand SALAM [facility] 04-11-2023 12:55-0400 SaO2% (BldA) [Mass fraction] 100 % Bradn SALAM [facility] 04-11-2023 12:55-0400 Systolic blood pressure 122 mm[Hg] Brand SALAM [facility] 04-11-2023 12:45-0400 Diastolic blood pressure 73 mm[Hg] Brand SALAM [facility] 04-11-2023 12:45-0400 Heart rate 55 /min Brand SALAM [facility] 04-11-2023 12:45-0400 Mean blood pressure 87 mm[Hg] Brand SALAM [facility] 04-11-2023 12:45-0400 Respiratory rate 12 /min Brand SALAM [facility] 04-11-2023 12:45-0400 SaO2% (BldA) [Mass fraction] 99 % Brand SALAM [facility] 04-11-2023 12:45-0400 Systolic blood pressure 115 mm[Hg] Brand SALAM [facility] 04-11-2023 12:30-0400 Diastolic blood pressure 64 mm[Hg] Brand SALAM [facility] 04-11-2023 12:30-0400 Heart rate 93 /min Brand SALAM [facility] 04-11-2023 12:30-0400 Respiratory rate 19 /min Brand SALAM [facility] 04-11-2023 12:30-0400 SaO2% (BldA) [Mass fraction] 100 % Brand SALAM [facility] 04-11-2023 12:30-0400 Systolic blood pressure 109 mm[Hg] Brand SALAM [facility] 04-11-2023 12:20-0400 Body temperature 97.16 [degF] Brand SALAM [facility] 04-11-2023 12:12-0400 Respiratory rate 22 /min Brand SALAM [facility] 04-11-2023 10:41-0400 Blood Pressure Location Brand SALAM [facility] 04-11-2023 10:41-0400 Body temperature 98.6 [degF] Brand SALAM [facility] 04-10-2023 08:46-0400 Blood Pressure Location Estellaboaz YoungSully [facility] 04-10-2023 08:46-0400 Body temperature 97.7 [degF] Estella Sully [facility] 04-10-2023 08:46-0400 Diastolic blood pressure 75 mm[Hg] Estella Sully [facility] 04-10-2023 08:46-0400 Heart rate 71 /min Estella Sully [facility] 04-10-2023 08:46-0400 Systolic blood pressure 125 mm[Hg] Estella Sully [facility] 04-22-2022 11:10-0400 Body temperature 98.6 [degF] [facility] 04-22-2022 11:10-0400 Diastolic blood pressure 67 mm[Hg] [facility] 04-22-2022 11:10-0400 Heart rate 76 /min [facility] 04-22-2022 11:10-0400 Respiratory rate 16 /min [facility] 04-22-2022 11:100400 SaO2% (BldA) [Mass fraction] 99 % [facility] 04-22-2022 11:100400 Systolic blood pressure 118 mm[Hg] [facility] Encounters Encounter Date Encounter Type Care Provider Facility Start: 05-21-2023 End: 05-22-2023 ambulatory [facility] Facility:[facility] Start: 05-21-2023 End: 06-17-2023 Pre-admission assessment Brand SALAM [facility] Start: 05-21-2023 End: 05-21-2023 Patient encounter procedure Brand SALAM [facility] Start: 05-10-2023 End: [facility] Start: 04-30-2023 End: 05-01-2023 ambulatory [facility] Start: 04-30-2023 End: 04-30-2023 Patient encounter procedure Brand SALAM [facility] Start: 04-11-2023 End: 04-12-2023 ambulatory [facility] Start: 04-11-2023 End: 04-11-2023 Patient encounter procedure Brand SALAM [facility] Start: 04-10-2023 End: 04-11-2023 ambulatory Estella A Sully Facility[facility] Start: 04-10-2023 End: 04-11-2023 ambulatory Estella A Sully Facility:[facility] Start: 04-10-2023 End: 04-10-2023 Patient encounter procedure Estella Virk [facility] Start: 04-10-2023 End: 04-10-2023 Patient encounter procedure Estella Virk [facility] Start: 04-07-2023 ambulatory [facility] Facility:[facility] Start: 04-06-2023 End: 04-06-2023 Emergency department patient visit Daniela Stevens Facility[facility] Start: 11-05-2022 End: 11-05-[address] CRISTAL CASTILLO Facility: Start: 05-27-2022 ambulatory Nicole Serrano [facility]y:[facility] Start: 05-27-2022 End: 05-28-2022 ambulatory Mellissa CALLE Facility:[facility] Start: 04-28-2022 End: 04-29-[address] ALLEN SOTOMAYOR Facility: Start: 04-22-2022 End: 04-22-2022 Emergency department patient visit Neris Fraire [facility] Start: 01-26-2020 End: 01-26-2020 Patient encounter procedure UNKNOWN PROVIDER Facility:[facility] Start: 01-19-2020 End: 01-19-2020 Patient encounter procedure UNKNOWN PROVIDER Facility:[facility] Start: 10-29-2019 Patient encounter procedure UNKNOWN PROVIDER Facility:[facility] Procedures Date Procedure Procedure Detail Performing Clinician Start: 04-11-2023 Esophagogastroduodenoscopy [facility] Comment on above: esophageal webbing, esophageal biopsies. dilated, gastric biopises and duodenal biopsies Start: 01-19-2020 Deep anest, 1st 15 min UNKNOWN PROVIDER Start: 01-19-2020 Extraction erupted tooth/exr UNKNOWN PRO VIDER Start: 01-19-2020 General anesth ea addl 15 mi UNKNOWN PRO VIDER Start: 01-19-2020 Impact tooth remov comp bony UNKNOWN PRO VIDER Start: 01-19-2020 Dental surgery service (qualifier value) Neris Fraire Start: 11-27-2018 Laparoscopic appendectomy Astrit Hajdari Immunizations Immunization Date Immunization Notes Care Provider Chris mckeon 04-21-2023 tetanus toxoid, redu augustin diphtheria toxoid, and acellular pertussis vaccine, adsorbed Brandkatiana GÓMEZSABINA [facility] 10-16-2021 influenza virus vacc ine, unspecified formulation [facility] 07-03-2021 meningococcal ACWY vaccine, unspecified formulation [facility] 10-17-2020 influenza, injectabl e, quadrivalent, preservative free [facility] Payers Date Payer Category Payer Private Health Insurance [id number] 2003 Unknown [id number] 2.16. [id number] 2003 Unknown [id number] 2.16.84 [id number] 2003 Unknown [id number] 2.16.8 [id number] 2003 Unknown [id number] 2.16.8 [id number] 2003 Unknown [id number] 2.16.8 [id number] 2003 Unknown [id number] 2.16.8 [id number] 2003 Unknown [id number] 2.16.8 [id number] 2003 Unknown [id number] 2.16.8 [id number] 2003 Unknown [id number] 2.16.8 [id number] 2003 Unknown [id number] 2.16.8 [id number] 2003 Unknown [id number] 2.16.8 [id number] 2003 Unknown [id number] 2.16.8 [id number] 1959 Unknown [id number] 1952 Unknown [id number] 2.16.84 [id number] Unknown [id number] 2.16. [id number] Unknown [id number] 2.16. [id number] Social History Date Type Detail Facility Tobacco [facility] Comment on above: vapes Sex Assigned At Male [facility] Start: 04-10-2023 End: 05-21-2023 Tobacco smoking status Never smoked tobacco (finding) [facility] Comment on above: vapes Functional Status Date Assessment Result Facility 05-21-2023 Functional Status N/A [facility] 04-11-2023 Functional Status N/A [facility] 04-10-2023 Functional Status N/A [facility] Clinical Notes 04-22-2022 to 06-16-2023 RadiologyRadiology Note Date & Type Note Facility 06-16-2023 Evaluation + Plan note Future Scheduled TestsXR Esophagus 06/16/23 [facility] 04-14-2023 Note [id number]:[id number] [facility] 04-11-2023 Hospital Discharg e instructions Patient Education 04/11/2023 12:42:48 Upper Endoscopy, Adult, Care After Upper Endoscopy, Adult, Care After This sheet gives you information about how to care for yourself after your procedure. Your health care provider may also give you more specific instructions. If you have problems or questions, contact your health care provider. What can I expect after the procedure? After the procedure, it is common to have: A sore throat. Mild stomach pain or discomfort. Bloating. Nausea. Follow these instructions at home: Follow instructions from your health care provider about what to eat or drink after your procedure. Return to your normal activities as told by your health care provider. Ask your health care provider what activities are safe for you. Take [id number]-[id number] and prescription medicines only as told by your health care provider. If you were given a sedative during the procedure, it can affect you for several hours. Do not drive or operate machinery until your health care provider says that it is safe. Keep all follow-up visits as told by your health care provider. This is important. Contact a health care provider if you have: A sore throat that lasts longer than one day. Trouble swallowing. Get help right away if: You vomit blood or your vomit looks like coffee grounds. You have: ?A fever. ?Bloody, black, or tarry stools. ?A severe sore throat or you cannot swallow. ?Difficulty breathing. ?Severe pain in your chest or abdomen. Summary After the procedure, it is common to have a sore throat, mild stomach discomfort, bloating, and nausea. If you were given a sedative during the procedure, it can affect you for several hours. Do not drive or operate machinery until your health care provider says that it is safe. Follow instructions from your health care provider about what to eat or drink after your procedure. Return to your normal activities as told by your health care provider. This information is not intended to replace advice given to you by your health care provider. Make sure you discuss any questions you have with your health care provider. Document Revised: 09/22/2020 Document Reviewed: 04/19/2019 [employer] Patient Education 2022 [employer]. 04/11/2023 12:41:21 Gluten-Free Diet for Celiac Disease, Adult Gluten-Free Diet for Celiac Disease, Adult The gluten-free diet includes all foods that do not contain gluten. Gluten is a protein that is found in wheat, rye, barley, and some other grains. Following the gluten-free diet is the only treatment for people with celiac disease. It helps to prevent damage to the intestines and improves or eliminates the symptoms of celiac disease. Following the gluten-free diet requires some planning. It can be challenging at first, but it gets easier with time and practice. There are more gluten-free options available today than ever before. If you need help finding gluten-free foods or if you have questions, talk with your dietitian or health care provider. What are tips for following this plan? Reading food labels Read all food labels. Gluten is often added to foods. Always check the ingredient list and look for warnings that the food may contain gluten. Foods that list any of these bender words on the label usually contain gluten: Wheat, flour, enriched flour, bromated flour, white flour, durum flour, keila flour, phosphated flour, self-rising flour, semolina, farina, barley (malt), rye, and oats. Starch, dextrin, modified food starch, or cereal. Thickening, fillers, or emulsifiers. Malt flavoring, malt extract, or malt syrup. Hydrolyzed vegetable protein. In the [place] packaged foods that are gluten-free are required to be labeled GF. These foods should be easy to identify and are safe to eat. In the [place] [employer] companies are also required to list common food allergens, including wheat, on their labels. Shopping When grocery shopping, start in the produce, meat, and dairy sections. These areas are more likely to contain gluten-free foods. Then move to the aisles that contain packaged foods if you need to. Meal planning All fruits, vegetables, and meats are safe to eat and do not contain gluten. Talk with your dietitian or health care provider before taking a gluten-free multivitamin or mineral supplement. Be aware of gluten-free foods having contact with foods that contain gluten (cross-contamination). This can happen at home and with any processed foods. ?Talk with your health care provider or dietitian about how to reduce the risk of cross-contamination in your home. ?If you have questions about how a food is processed, ask the reconciliation specialist. What foods can I eat? Fruits All plain fresh, frozen, canned, and dried fruits, and 100% fruit juices. Vegetables All plain fresh, frozen, and canned vegetables, and 100% vegetable juices. Grains Amaranth, degroot flours, 100% buckwheat flour, corn, millet, nut flours or nut meals, GF oats, quinoa, rice, sorghum, teff, rice wafers, pure cornmeal tortillas, popcorn, and hot cereals made from cornmeal or GF grains. [place], rice, and wild rice. Some rice noodles or degroot noodles. Arrowroot starch, corn bran, corn flour, corn germ, cornmeal, corn starch, potato flour, potato starch flour, and rice bran. Plain, brown, and sweet rice flours. Rice lithuanian, soy flour, and tapioca starch. Meats and other protein foods All fresh beef, pork, poultry, fish, seafood, and eggs. Fish canned in water, oil, brine, or vegetable broth. Plain nuts and seeds, peanut butter. Some precooked or cured meat, such as sausages or meat loaves. Some frankfurters. Dried beans, dried peas, and lentils. Dairy Fresh plain, dry, evaporated, or condensed milk. Cream, butter, sour cream, whipping cream, and most yogurts. Unprocessed cheese, most processed cheeses, some cottage cheeses, and some cream cheeses. Beverages Coffee, tea, and most herbal teas. Carbonated beverages and some root beers. Wine, sake, and pure distilled spirits, such as gin, vodka, and whiskey. Most hard ciders. Fats and oils Butter, margarine, vegetable oil, hydrogenated butter, olive oil, shortening, lard, cream, and some mayonnaise. Some commercial salad dressings. Olives. Sweets and desserts Sugar, honey, some syrups, molasses, jelly, and jam. Plain hard candy, marshmallows, and gumdrops. Pure cocoa powder. Plain chocolate. Custard and some pudding mixes. Gelatin desserts, sorbets, frozen ice pops, and sherbet. Cake, cookies, and other desserts prepared with allowed flours. Some commercial ice creams. Cornstarch, tapioca, and rice puddings. Seasoning and other foods Some canned or frozen soups. Monosodium glutamate (MSG). Cider, rice, and wine vinegar. Baking soda and baking powder. Cream of tartar. Baking and nutritional yeast. Certain soy sauces made without wheat. Ask your dietitian about specific brands that are allowed. Nuts, coconut, and chocolate. Salt, pepper, herbs, spices, flavoring extracts, imitation or artificial flavorings, natural flavorings, and food colorings. Some medicines and supplements. Rice syrups. The items listed above may not be a complete list of foods and beverages you can eat and drink. Contact a dietitian for more information. What foods should I avoid? Fruits Thickened or prepared fruits and some pie fillings. Some fruit snacks and fruit roll-ups. Vegetables Most creamed vegetables and most vegetables canned in sauces. Some commercially prepared vegetables and salads. Vegetables in a soy sauce marinade or dressing. Grains Barley, bran, bulgur, couscous, cracked wheat, Espinoza, farro, keila, malt, matzo, semolina, wheat germ, and all wheat and rye cereals, including spelt and kamut. Cereals containing malt as a flavoring, such as rice cereal. Noodles, spaghetti, macaroni, most packaged rice mixes, and all mixes containing wheat, rye, barley, or triticale. Meats and other protein foods Any meat or meat alternative containing wheat, rye, barley, or gluten stabilizers. These are often marinated or packaged meats, and precooked or cured meat, such as sausages or meat loaves. Bread-containing products, such as [place] steak, croquettes, meatballs, and meatloaf. Most tuna canned in vegetable broth. [place] with hydrolyzed vegetable protein (HVP) injected as part of the basting. Seitan. Imitation fish. Eggs in sauces made from ingredients to avoid. Dairy Commercial chocolate milk drinks and malted milk. Some non-dairy creamers. Any cheese product containing ingredients to avoid. Beverages Certain cereal beverages. Beer, dawit, malted milk, and some root beers. Some hard ciders. Some instant flavored coffees. Some herbal teas made with barley or with barley malt added. Fats and oils Some commercial salad dressings. Sour cream containing modified food starch. Sweets and desserts Some toffees. Chocolate-coated nuts (may be rolled in wheat flour) and some commercial candies and candy bars. Most cakes, cookies, donuts, pastries, and other baked goods. Some commercial ice cream. Ice cream cones. Commercially prepared mixes for cakes, cookies, and other desserts. Bread pudding and other puddings thickened with flour. Products containing brown rice syrup made with barley malt enzyme. Desserts and sweets made with malt flavoring. Seasoning and other foods Some jang powders, some dry seasoning mixes, some gravy extracts, some meat sauces, some ketchups, some prepared mustards, and horseradish. Certain soy sauces. Malt vinegar. Bouillon and bouillon cubes that contain HVP. Some chip dips. Some chewing gum. Yeast extract. Ruby's yeast. Caramel color. Some medicines and supplements. The items listed above may not be a complete list of foods and beverages you should avoid. Contact a dietitian for more information. Summary Gluten is a protein that is found in wheat, rye, barley, and some other grains. The gluten-free diet includes all foods that do not contain gluten. If you need help finding gluten-free foods or if you have questions, talk with your dietitian or your health care provider. Read all food labels. Gluten is often added to foods. Always check the ingredient list and look for warnings that the food may contain gluten. This information is not intended to replace advice given to you by your health care provider. Make sure you discuss any questions you have with your health care provider. Document Revised: 10/08/2022 Document Reviewed: 10/08/2022 [employer] 2022 [employer]. 04/11/2023 12:41:05 Esophagitis Esophagitis Esophagitis is inflammation of the esophagus. The esophagus is the tube that carries food from the mouth to the stomach. Esophagitis can cause soreness or pain in the esophagus. This condition can make it difficult and painful to swallow. What are the causes? Most causes of esophagitis are not serious. Common causes of this condition include: Gastroesophageal reflux disease (GERD). This is when stomach contents move back up into the esophagus (reflux). Repeated vomiting. An allergic reaction, especially caused by food allergies (eosinophilic esophagitis). Injury to the esophagus by swallowing large pills with or without water, or swallowing certain types of medicines. Swallowing harmful chemicals, such as household cleaning products. Drinking a lot of alcohol. An infection of the esophagus. This most often occurs in people who have a weakened immune system. Radiation or chemotherapy treatment for cancer. Certain diseases such as sarcoidosis, Crohn's disease, and scleroderma. What are the signs or symptoms? Symptoms of this condition include: Difficult or painful swallowing. Pain with swallowing acidic liquids, such as citrus juices. You may also have pain when you burp. Chest pain and difficulty breathing. Nausea and vomiting. Pain in the abdomen. Weight loss. Ulcers in the mouth and white patches in the mouth (candidiasis). Fever. Coughing up blood or vomiting blood. Stool that is black, tarry, or bright red. How is this diagnosed? This condition may be diagnosed based on your medical history and a physical exam. You may also have other tests, including: A test to examine your esophagus and stomach with a small flexible tube with a camera (endoscopy). A test that measures the acidity level in your esophagus. A test that measures how much pressure is on your esophagus. A barium swallow or modified barium swallow to show the shape, size, and functioning of your esophagus. Allergy tests. How is this treated? Treatment for this condition depends on the cause of your esophagitis. In some cases, steroids or other medicines may be given to help relieve your symptoms or to treat the underlying cause of your condition. You may have to make some lifestyle changes, such as: Avoiding alcohol. Quitting any products that contain nicotine or tobacco. These products include cigarettes, chewing tobacco, and vaping devices, such as e-cigarettes. If you need help quitting, ask your health care provider. Changing your diet. Exercising. Changing your sleep habits and your sleep environment. Follow these instructions at home: Medicines Take peig-mhe-hsvrbkv and prescription medicines only as told by your health care provider. Do not take aspirin, ibuprofen, or other NSAIDs unless your health care provider told you to do so. If you have trouble taking pills: ?Use a pill splitter to decrease the size of the pill. This will decrease the chance of the pill getting stuck or injuring your esophagus. ?Drink water after you take a pill. Eating and drinking Avoid foods and drinks that seem to make your symptoms worse. Follow a diet as recommended by your health care provider. This may involve avoiding foods and drinks such as: ?Coffee and tea, with or without caffeine. ?Drinks that contain alcohol. ?Energy drinks and sports drinks. ?Carbonated drinks or sodas. ?Chocolate and cocoa. ?Peppermint and mint flavorings. ?Garlic and onions. ?Horseradish. ?Spicy and acidic foods, including peppers, chili powder, jang powder, vinegar, hot sauces, and barbecue sauce. ?[place] fruit juices and citrus fruits, such as oranges, jonathan, and limes. ?Tomato-based foods, such as red sauce, chili, salsa, and pizza with red sauce. ?Fried and fatty foods, such as donuts, cymro fries, potato chips, and high-fat dressings. ?High-fat meats, such as hot dogs and fatty cuts of red and white meats, such as rib eye steak, sausage, ham, and monson. ?High-fat dairy items, such as whole milk, butter, and cream cheese. Lifestyle Eat small, frequent meals instead of large meals. Avoid drinking large amounts of liquid with your meals. Avoid eating meals during the 2 3 hours before bedtime. Avoid lying down right after you eat. Do not exercise right after you eat. Do not use any products that contain nicotine or tobacco. These products include cigarettes, chewing tobacco, and vaping devices, such as e-cigarettes. If you need help quitting, ask your health care provider. General instructions Pay attention to any changes in your symptoms. Let your health care provider know about them. Wear loose-fitting clothing. Do not wear anything tight around your waist that causes pressure on your abdomen. Raise (elevate) the head of your bed about 6 inches (15 cm). You may need to use a wedge to do this. Try relaxation strategies such as yoga, deep breathing, or meditation to manage stress. If you need help reducing stress, ask your health care provider. If you are overweight, reduce your weight to an amount that is healthy for you. Ask your health care provider for guidance about a safe weight loss goal. Keep all follow-up visits. This is important. Contact a health care provider if: You have new symptoms. You have unexplained weight loss. You have difficulty swallowing, or it hurts to swallow. You have wheezing or a cough that does not go away. Your symptoms do not improve with treatment. You have frequent heartburn for more than two weeks. Get help right away if: You have sudden severe pain in your arms, neck, jaw, teeth, or back. You suddenly feel sweaty, dizzy, or light-headed. You have chest pain or shortness of breath. You vomit and the vomit is green, yellow, or black, or it looks like blood or coffee grounds. Your stool is red, bloody, or black. You have a fever. You cannot swallow, drink, or eat. These symptoms may represent a serious problem that is an emergency. Do not wait to see if the symptoms will go away. Get medical help right away. Call your local emergency services (911 in the [place] Do not drive yourself to the hospital. Summary Esophagitis is inflammation of the esophagus. Most causes of esophagitis are not serious. Follow your health care provider's instructions about eating and drinking. Contact a health care provider if you have new symptoms, have weight loss, or coughing that does not stop. Get help right away if you have severe pain in the arms, neck, jaw, teeth, or back, or if you have chest pain, shortness of breath, or fever. This information is not intended to replace advice given to you by your health care provider. Make sure you discuss any questions you have with your health care provider. Document Revised: 05/28/2021 Document Reviewed: 05/28/2021 [employer] Patient Education 2022 [employer]. 04/11/2023 12:40:58 Celiac Disease Celiac Disease Celiac disease is a condition in which the body's disease-fighting system (immune system) attacks the small intestine and causes damage. This is known as an autoimmune disease. When a person with celiac disease eats a food that has gluten in it, the immune system attacks the cells that line the small intestine. Over time, this reaction damages the small intestine and makes the small intestine unable to absorb nutrients from food. Gluten is found in wheat, rye, and barley, and in foods like pasta, pizza, and cereal. Celiac disease is also known as celiac sprue, nontropical sprue, and gluten-sensitive enteropathy. What are the causes? This condition is caused by a gene that is passed from parent to child (inherited). What increases the risk? You are more likely to develop this condition if you: Have a family member with the disease. Have an autoimmune condition, such as Type 1 diabetes or a thyroid disorder. Are female. What are the signs or symptoms? Symptoms of this condition include: Recurring bloating, pain in the abdomen, and gas. Long-term (chronic) diarrhea and pale, bad-smelling, greasy, or oily stool. Weight loss. Missed menstrual periods. Weak bones (osteoporosis). Fatigue and weakness. Tingling or other signs of nerve damage. Depression. Poor appetite. Rash. Anemia. In some cases, there are no symptoms of this condition. How is this diagnosed? This condition is diagnosed with a physical exam and tests. Tests may include: Blood tests to check for nutritional deficiencies. Blood tests to look for evidence that the body is attacking cells in the small intestine. A test in which a sample of tissue is taken from the small intestine and looked at under a microscope (biopsy). X-rays of the intestine. Stool tests. Tests to check for nutrient absorption from the intestine. How is this treated? There is no cure for this condition. It is managed by following a strict gluten-free diet. Treatment may also involve avoiding dairy foods, such as milk and cheese, because they are difficult to digest. Most people who follow a strict gluten-free diet feel better and stop having symptoms. The intestine usually heals within 3 months to 2 years. In a small percentage of people, this condition does not improve on a gluten-free diet. If your condition does not improve, more tests may be done. You may also need to work with a celiac disease specialist to find the best treatment for you. Follow these instructions at home: Follow instructions from your health care provider about what you may eat and drink. Monitor your body's response to the gluten-free diet. Write down any changes in your symptoms and in how you feel. If you eat while you are away from home, prepare your food ahead of time. Or, make sure that the place where you are going has gluten-free options. Suggest to family members that they get screened for early signs of celiac disease. Keep all follow-up visits. This is important. Contact a health care provider if: You continue to have symptoms, even when you are eating a gluten-free diet. You have trouble following a gluten-free diet. You develop an itchy rash with groups of tiny blisters. You develop severe weakness. You develop balance problems. You develop new symptoms. Summary Celiac disease is a condition in which the body's disease-fighting system (immune system) attacks the small intestine and causes damage. There is no cure for this condition. It is managed by following a strict gluten-free diet. For some people, following a low-dairy or dairy-free diet also helps. Follow instructions from your health care provider about what you may eat and drink. Write down any changes in your symptoms and in how you feel. Contact a health care provider if you continue to have symptoms, even when you are eating a gluten-free diet, or if you have new symptoms. Keep all follow-up visits. This is important. This information is not intended to replace advice given to you by your health care provider. Make sure you discuss any questions you have with your health care provider. Document Revised: 10/08/2022 Document Reviewed: 10/08/2022 [employer] Patient Education 2022 [employer]. Follow Up Care 04/10/2023 09:34:50 With:CAMILO BELL, SLIM Brand, [facility] Address: [facility] [address] [place] [address] When: Unknown Comments:office will call for follow up [facility] 04-11-2023 Evaluation + Plan note Diagnostic Tests PendingIgA, Quant. 04/11/23t-Transglutaminase IgA 04/11/23 Future Scheduled TestsXR Shoulder Complete Right 05/27/22 [facility] 04-10-2023 Hospital Discharg e instructions Patient Education 04/10/2023 09:09:08 Dysphagia Dysphagia Dysphagia is trouble swallowing. This condition occurs when solids and liquids stick in a person's throat on the way down to the stomach, or when food takes longer to get to the stomach than usual. You may have problems swallowing food, liquids, or both. You may also have pain while trying to swallow. It may take you more time and effort to swallow something. What are the causes? This condition may be caused by: Muscle problems. These may make it difficult for you to move food and liquids through the esophagus, which is the tube that connects your mouth to your stomach. Blockages. You may have ulcers, scar tissue, or inflammation that blocks the normal passage of food and liquids. Causes of these problems include: ?Acid reflux from your stomach into your esophagus (gastroesophageal reflux). ?Infections. ?Radiation treatment for cancer. ?Medicines taken without enough fluids to wash them down into your stomach. Stroke. This can affect the nerves and make it difficult to swallow. Nerve problems. These prevent signals from being sent to the muscles of your esophagus to squeeze (contract) and move what you swallow down to your stomach. Globus pharyngeus. This is a common problem that involves a feeling like something is stuck in your throat or a sense of trouble with swallowing, even though nothing is wrong with the swallowing passages. Certain conditions, such as cerebral palsy or Parkinson's disease. What are the signs or symptoms? Common symptoms of this condition include: A feeling that solids or liquids are stuck in your throat on the way down to the stomach. Pain while swallowing. Coughing or gagging while trying to swallow. Other symptoms include: Food moving back from your stomach to your mouth (regurgitation). Noises coming from your throat. Chest discomfort when swallowing. A feeling of fullness when swallowing. Drooling, especially when the throat is blocked. Heartburn. How is this diagnosed? This condition may be diagnosed by: Barium swallow X-ray. In this test, you will swallow a white liquid that sticks to the inside of your esophagus. X-ray images are then taken. Endoscopy. In this test, a flexible telescope is inserted down your throat to look at your esophagus and your stomach. CT scans or an MRI. How is this treated? Treatment for dysphagia depends on the cause of this condition: If the dysphagia is caused by acid reflux or infection, medicines may be used. These may include antibiotics or heartburn medicines. If the dysphagia is caused by problems with the muscles, swallowing therapy may be used to help you strengthen your swallowing muscles. You may have to do specific exercises to strengthen the muscles or stretch them. If the dysphagia is caused by a blockage or mass, procedures to remove the blockage may be done. You may need surgery and a feeding tube. You may need to make diet changes. Ask your health care provider for specific instructions. Follow these instructions at home: Medicines Take zayt-wld-hyycxpc and prescription medicines only as told by your health care provider. If you were prescribed an antibiotic medicine, take it as told by your health care provider. Do not stop taking the antibiotic even if you start to feel better. Eating and drinking Make any diet changes as told by your health care provider. Work with a diet and community nutrition educator (dietitian) to create an eating plan that will help you get the nutrients you need in order to stay healthy. Eat soft foods that are easier to swallow. Cut your food into small pieces and eat slowly. Take small bites. Eat and drink only when you are sitting upright. Do not drink alcohol or caffeine. If you need help quitting, ask your health care provider. General instructions Check your weight every day to make sure you are not losing weight. Do not use any products that contain nicotine or tobacco. These products include cigarettes, chewing tobacco, and vaping devices, such as e-cigarettes. If you need help quitting, ask your health care provider. Keep all follow-up visits. This is important. Contact a health care provider if: You lose weight because you cannot swallow. You cough when you drink liquids. You cough up partially digested food. Get help right away if: You cannot swallow your saliva. You have shortness of breath, a fever, or both. Your voice is hoarse and you have trouble swallowing. These symptoms may represent a serious problem that is an emergency. Do not wait to see if the symptoms will go away. Get medical help right away. Call your local emergency services (911 in the [place] Do not drive yourself to the hospital. Summary Dysphagia is trouble swallowing. This condition occurs when solids and liquids stick in a person's throat on the way down to the stomach. You may cough or gag while trying to swallow. Dysphagia has many possible causes. Treatment for dysphagia depends on the cause of the condition. Keep all follow-up visits. This is important. This information is not intended to replace advice given to you by your health care provider. Make sure you discuss any questions you have with your health care provider. Document Revised: 07/07/2021 Document Reviewed: 07/07/2021 [employer] Patient Education 2022 [employer]. Follow Up Care 04/07/2023 09:29:25 With:Estella Virk CNP Address: When:1 week Comments:Following EGD with dilation. [facility] 04-22-2022 Hospital Discharg e instructions Patient Education 04/22/2022 13:35:55 Urinary Tract Infection, Adult Urinary Tract Infection, Adult A urinary tract infection (UTI) is an infection of any part of the urinary tract. The urinary tract includes the kidneys, ureters, bladder, and urethra. These organs make, store, and get rid of urine in the body. Your health care provider may use other names to describe the infection. An upper UTI affects the ureters and kidneys (pyelonephritis). A lower UTI affects the bladder (cystitis) and urethra (urethritis). What are the causes? Most urinary tract infections are caused by bacteria in your genital area, around the entrance to your urinary tract (urethra). These bacteria grow and cause inflammation of your urinary tract. What increases the risk? You are more likely to develop this condition if: You have a urinary catheter that stays in place (indwelling). You are not able to control when you urinate or have a bowel movement (you have incontinence). You are female and you: ?Use a spermicide or diaphragm for control. ?Have low estrogen levels. ?Are . You have certain genes that increase your risk (genetics). You are sexually active. You take antibiotic medicines. You have a condition that causes your flow of urine to slow down, such as: ?An enlarged prostate, if you are male. ?Blockage in your urethra (stricture). ?A kidney stone. ?A nerve condition that affects your bladder control (neurogenic bladder). ?Not getting enough to drink, or not urinating often. You have certain medical conditions, such as: ?Diabetes. ?A weak disease-fighting system (immunesystem). ?Sickle cell disease. ?Gout. ?Spinal cord injury. What are the signs or symptoms? Symptoms of this condition include: Needing to urinate right away (urgently). Frequent urination or passing small amounts of urine frequently. Pain or burning with urination. Blood in the urine. Urine that smells bad or unusual. Trouble urinating. Cloudy urine. Vaginal discharge, if you are female. Pain in the abdomen or the lower back. You may also have: Vomiting or a decreased appetite. Confusion. Irritability or tiredness. A fever. Diarrhea. The first symptom in older adults may be confusion. In some cases, they may not have any symptoms until the infection has worsened. How is this diagnosed? This condition is diagnosed based on your medical history and a physical exam. You may also have other tests, including: Urine tests. Blood tests. Tests for sexually transmitted infections (STIs). If you have had more than one UTI, a cystoscopy or imaging studies may be done to determine the cause of the infections. How is this treated? Treatment for this condition includes: Antibiotic medicine. Egnj-qst-itmiwkk medicines to treat discomfort. Drinking enough water to stay hydrated. If you have frequent infections or have other conditions such as a kidney stone, you may need to see a health care provider who specializes in the urinary tract (urologist). In rare cases, urinary tract infections can cause sepsis. Sepsis is a life-threatening condition that occurs when the body responds to an infection. Sepsis is treated in the hospital with IV antibiotics, fluids, and other medicines. Follow these instructions at home: Medicines Take psqf-qpg-dvqrghb and prescription medicines only as told by your health care provider. If you were prescribed an antibiotic medicine, take it as told by your health care provider. Do not stop using the antibiotic even if you start to feel better. General instructions Make sure you: ?Empty your bladder often and completely. Do not hold urine for long periods of time. ?Empty your bladder after sex. ?Wipe from front to back after a bowel movement if you are female. Use each tissue one time when you wipe. Drink enough fluid to keep your urine pale yellow. Keep all follow-up visits as told by your health care provider. This is important. Contact a health care provider if: Your symptoms do not get better after 1 2 days. Your symptoms go away and then return. Get help right away if you have: Severe pain in your back or your lower abdomen. A fever. Nausea or vomiting. Summary A urinary tract infection (UTI) is an infection of any part of the urinary tract, which includes the kidneys, ureters, bladder, and urethra. Most urinary tract infections are caused by bacteria in your genital area, around the entrance to your urinary tract (urethra). Treatment for this condition often includes antibiotic medicines. If you were prescribed an antibiotic medicine, take it as told by your health care provider. Do not stop using the antibiotic even if you start to feel better. Keep all follow-up visits as told by your health care provider. This is important. This information is not intended to replace advice given to you by your health care provider. Make sure you discuss any questions you have with your health care provider. Document Released: 08/27/2006 Document Revised: 11/04/2019 Document Reviewed: 05/27/2019 [employer] Patient Education 2020 [employer]. Follow Up Care 04/22/2022 11:08:12 With:Vipul YI Address: [address] [address]- Business (1) When:04/25/2022 13:32:23 [facility] 04-22-2022 Evaluation + Plan note Extrac dee from: Title:ED Note Author:Juan Hutchins PA-C te:04/22/22 UTI (urinary tract infection ) (N39.0: Urinary tract infection, site not specified) Orders: cephalexin, 500 mg = 1 cap(s), Oral, q12hr, X 7 day(s), # 14 cap(s), Refills(s) 0, Pharmacy: [facility]/pharmacy #[id number], 185.2, cm, 01/15/22 13:32:00 EST, Height/Length Dosing, 52.7, kg, 01/15/22 13:32:00 EST, Weight Dosing Chlamydia/Gonococcus, ALMAZ UA With Cult Reflex Urine Culture Diagnostic Tests Pending * Chlamydia/Gonococcus, ALMAZ 04/22/22 * U[facility] Appointment Date:04/11/2023 12:00:00 PM Scheduled Provider: Location:[facility] Appointment Type:Surgery FT Future Scheduled Tests Radiology* XR Shoulder Complete Right 05/27/22 [facility] Evaluation + Plan note Future Appointments Appointment Date:05/21/2023 08:00:00 AM Scheduled Provider:Sunday MEDRANO MD Location[facility] Type:[facility] Follow Up Future Scheduled Tests Radiology* CT Abdomen/Pelvis w/ Contrast 05/07/23 * XR Shoulder Complete Right [facility]27[facility] App[facility]ments Appointment Date:05/30/2023 09:00:00 AM Scheduled Provider: [facility] Appoint[facility] Type:XR Esophagus/Upper GI/Small Bowel (FT) Appointment Date:05/30/2023 10:00:00 AM Scheduled Provider: Location:[facility] Appointment Type:Surgery FT Future Scheduled Tests Radiology* XR Esophagus 05/30/23 * XR Shoulder Complete Right 05/27/22 [facility] Hospital course Narrative No data available for this section [facility] No data available for this section [facility] No data available for this section [facility] Summary Purpose Family History No Family History Records FoundNo Family History Records FoundNo Family History Records Found Advance Directives No Advanced Directives Records FoundNo Advanced Directives Records FoundNo Advanced Directives Records Found Additional Source Comments (unrecognized sect ion and content) No Status Records FoundNo Status Records FoundNo Status Records Found INFORMATION SOURCE (unrecogn ized section and content) DATE CREATED AUTHOR 02/01/2020 [employer] DATE CREATED AUTHOR AUTHOR'S ORGANIZ ATION 11/07/2022 [facility] DATE CREATED AUTHOR AUTHOR'S ORGANIZ ATION 05/22/2023 [facility] Patient Care team informatio n (unrecognized section and content) Personnel Name: Vipul YI MD Address: Address: [address] [place] [address]. [address] Personnel Name: Vipul YI MD Address: Address: [address] [place] [address]. [address] Personnel Name: NONE, XXXX Address: Address: [facility] Personnel Name: NONE, XXXX Address: Address: [facility] Personnel Name: NONE, XXXX Address: Address: [facility] Personnel Name: NONE, XXXX Address: Address: [facility] FOR RECORDS PERTAINING TO PATIENTS WHO ARE OR HAVE BEEN ENROLLED IN A CHEMICAL DEPENDENCY/SUBSTANCEABUSE PROGRAM, SOME INFORMATION MAY BE OMITTED. This clinical summary was aggregated from multiple sources. Caution should be exercised in using it in the provision of clinical care. This summary normalizes information from multiple sources, and as a consequence, information in this document may materially change the coding, format and clinical context of patient data. In addition, data may be omitted in some cases. CLINICAL DECISIONS SHOULD BE BASED ON THE PRIMARY CLINICAL RECORDS. [facility]. provides no warranty or guarantee of the accuracy or completeness of information in this document.
--- NOTE | 2024-02-11 09:20 | XR_ITS ---
The [address] [address] Patient Name: PACO BISHOP MRN: [id number] date: 2005 Sex: M Assigned Patient Location: ER Current Patient Location: ER Accession/Order Number: [id number] Exam Date: 02/11/2024 09:14 Report Date: 02/11/2024 09:29 At the request of: ZACHARY FLORES Procedure: XR chest 1V EXAMINATION: XR chest 1V HISTORY: cough COMPARISON: 11/05/2022 TECHNIQUE: AP portable FINDINGS: LUNGS: No significant pulmonary parenchymal abnormalities. VASCULATURE: No increased pulmonary vasculature. PLEURA: No pneumothorax, effusion, or pleural thickening. CARDIAC: No cardiomegaly or cardiac silhouette abnormality. MEDIASTINUM: No visible mass or adenopathy. BONES: No fracture or visible bone lesion. OTHER: Negative. XR/XR chest 1V IMPRESSION: No acute cardiopulmonary process Electronically authenticated by: JOCY GUDINO Date: 02/11/2024 09:29
[2024-02-11 09:59] LABS: Influenza Virus A Antigen Negative; Influenza Virus B Antigen Negative; Internal Control Within Normal Limits; SARS-CoV-2 Ag NEGATIVE (NEGATIVE)
== END 2024-02-11 10:19 | disposition home or self-care (01) ==
PROVIDERS: Emergency Provider Emergency Medicine; PCP Pediatrics
DX: J06.9 Acute upper respiratory infection, unspecified (principal); F17.210 Nicotine dependence, cigarettes, uncomplicated; Z20.822 Contact with and (suspected) exposure to COVID-19
CPT/HCPCS: 71045; 87804; 87811; 99284